=== PATIENT | male | born 1960 | race Caucasian/White ===

== ENCOUNTER 2016-08-09 12:12 | Inpatient (IN) | payer OTHER ==
[~2016-08-09] VITALS: Ht 182.8 cm; Wt 111.4 kg
--- NOTE | ~2016-08-09 | CON ---
[place], [place] REPORT OF CONSULTATION NAME: SARAH TRIANA UNIT #: [id number] ROOM: 407 DOCTOR: STACIE OLEA BIRTHDATE: [birth year] DOS: 08/10/2016 HISTORY OF PRESENT ILLNESS: He is a 56-year-old male who came into the hospital complaining of dizziness. [facility] to see his psych doctor and he was walking, had a dizzy episode, said that he sees stars. The episode lasted about 3 minutes and he was brought here to the hospital. He has had an extensive medical workup including an echocardiogram today. He lives in a senior care in [place]. PAST MEDICAL HISTORY: High magnesium, near syncopal episode, bipolar type 1, BPH. He is schizophrenic as well, constipation, GERD, high lipids, and paranoid disorder. MENTAL STATUS: He is alert and oriented x 3. His mood is good. His speech is appropriate. He has no signs of see or hypomania. He denies any hallucinations, delusions, or paranoia. His processing is just a little bit slowed. His memory does seem to be intact, though. He has had none of his psych medications since he has been here. He did get a one-time dose of Seroquel 50 mg last night at his request. He was previously on Haldol t.i.d. as needed, lithium 300 in the morning and 600 in the evening, and Seroquel 800 at bedtime. DIAGNOSIS: Chronic paranoid schizophrenia. PLAN: To restart his lithium 300 in the morning and 600 at bedtime since it has only been a couple days since he did not have it and then to continue the Seroquel at 800 mg every night at bedtime. He is for discharge today and states that he is going to follow up with his psych doctor, , at the [facility] today. Stacie Olea NP CM:CONSTR:REPORT OF CONSULTATION 1024 08/11/16 0126 interface
[~2016-08-09 12:12] MED LIST: ATIVAN0.5 MG PO; BENZTROPINE1 MG PO; DOCUSATE100 MG PO; GEMCOR600 MG PO; HALDOL5 M1 PO; LITHIUM CARBON600 MG PO; PRILOSEC20 M1 PO; QUETIAPINE FUM200 M1 PO; SEROQUEL XR50 MG PO; SEROQUEL50 MG PO; SPIRIVA18 MCG INH; TAMSULOSIN HYD0.4 MG PO; TYLENOL EXTRA500 M1 PO; ZOVIRAX400 MG PO
[2016-08-09 12:18] VITALS: BP 101/74
[2016-08-09] MEDS ORDERED: LOXAPINE SUCCIN10 MG PO (12:29)
[2016-08-09] MEDS ORDERED: OMEPRAZOLE20 M2 PO (12:30)
[2016-08-09] MEDS ORDERED: PROPRANOLOL HCL40 M1 PO (12:31)
[2016-08-09] MEDS ORDERED: HEALTHYLAX17 GM/Dose PO (12:32)
[2016-08-09] MEDS ORDERED: PROVENTIL0.09 MG/A1 INH (12:33)
[2016-08-09] MEDS ORDERED: FISH OIL500 M2 PO (12:35)
[2016-08-09] MEDS ORDERED: DOCUSATE SODIU100 M2 PO (12:36)
[2016-08-09] MEDS ORDERED: LITHIUM CARBON300 MG PO (12:37)
[2016-08-09] MEDS ORDERED: BASLE1 CRE TP (12:38)
[2016-08-09 12:44] LABS: BASO # 0.1 10*3/uL (0.0-0.1); BASO % 0.7 % (0.0-1.0); EOS # 0.4 10*3/uL (0.0-0.4); EOS % 5.2 % (1.0-4.0); HEMATOCRIT 43.1 % (42.0-52.0); HEMOGLOBIN 14.4 g/dl (14.0-18.0); LYMPH # 1.9 10*3/uL (1.3-4.4); LYMPH % 28.4 % (27.0-41.0); MEAN CELL VOLUME 95.1 fl (80.0-94.0); MEAN CORPUSCULAR HGB 31.8 pg (27.0-31.0); MEAN CORPUSCULAR HGB CONC 33.4 g/dl (33.0-37.0); MEAN PLATELET VOLUME 9.9 fl (9.6-12.3); MONO # 0.7 10*3/uL (0.1-1.0); MONO % 9.9 % (3.0-9.0); NEUT # 3.8 10*3/uL (2.3-7.9); NEUT % 55.5 % (47.0-73.0); PLATELET COUNT AUTOMATED 190 10*3/uL (130-400); RED BLOOD COUNT 4.53 10*6/uL (4.50-5.90); RED CELL DISTRI WIDTH 13.1 % (0-14.5); WHITE BLOOD COUNT 6.8 10*3/uL (4.8-10.8)
[2016-08-09 12:56] LABS: INTERNATIONAL NORM RATIO 1.1 (2.0-3.5); PROTHROMBIN TIME 11.4 SECONDS (9.0-12.4)
[2016-08-09 13:01] LABS: ALBUMIN 4.2 gm/dl (3.1-4.5); ALKALINE PHOSPHATASE 71 U/L (45-117); BILIRUBIN, TOTAL 0.5 mg/dl (0.2-1.0); BUN 21 mg/dl (7-24); CARBON DIOXIDE 32 mmol/L (21-32); CHLORIDE 103 mmol/L (98-107); EST GLOM FILT AFRICAN AMERICAN > 60 ml/min; GLUCOSE 103 mg/dL (65-99); MAGNESIUM 2.4 mg/dL (1.5-2.1); POTASSIUM 4.3 mmol/L (3.5-5.1); SGOT/AST 12 IU/L (3-35); SGPT/ALT 20 U/L (12-78); SODIUM 136 mmol/L (136-145); TOTAL PROTEIN 7.8 gm/dL (6.4-8.2)
[2016-08-09 13:08] LABS: TROPONIN I < 0.015 ng/ml (<0.045)
[2016-08-09 13:55] VITALS: BP 105/63
[2016-08-09] MEDS ORDERED: QUETIAPINE FUM400 M1 PO (14:18)
[2016-08-09] MEDS ORDERED: HALDOL5 MG PO (14:20)
[2016-08-09] MEDS ORDERED: VITAMIN D32000 IU PO (14:21)
[2016-08-09 14:34] VITALS: BP 119/89
[2016-08-09 16:00] VITALS: BP 120/84
[2016-08-09 20:00] VITALS: BP 144/57
[2016-08-10] VITALS: BP 119/79
[2016-08-10 05:05] VITALS: BP 143/86
[2016-08-10 06:39] LABS: BASO % 0.7 % (0.0-1.0); EOS # 0.3 10*3/uL (0.0-0.4); HEMATOCRIT 43.1 % (42.0-52.0); LYMPH # 1.8 10*3/uL (1.3-4.4); LYMPH % 29.6 % (27.0-41.0); MEAN CELL VOLUME 96.6 fl (80.0-94.0); MEAN CORPUSCULAR HGB 31.4 pg (27.0-31.0); MEAN CORPUSCULAR HGB CONC 32.5 g/dl (33.0-37.0); MEAN PLATELET VOLUME 10.1 fl (9.6-12.3); MONO # 0.5 10*3/uL (0.1-1.0); MONO % 8.4 % (3.0-9.0); NEUT # 3.4 10*3/uL (2.3-7.9); PLATELET COUNT AUTOMATED 175 10*3/uL (130-400); RED BLOOD COUNT 4.46 10*6/uL (4.50-5.90); RED CELL DISTRI WIDTH 13.2 % (0-14.5)
[2016-08-10 07:09] LABS: ALBUMIN 3.8 gm/dl (3.1-4.5); ALKALINE PHOSPHATASE 74 U/L (45-117); BILIRUBIN, TOTAL 0.5 mg/dl (0.2-1.0); BUN 18 mg/dl (7-24); CARBON DIOXIDE 28 mmol/L (21-32); CHLORIDE 105 mmol/L (98-107); CHOLESTEROL 162 mg/dL (<200); EST GLOM FILT AFRICAN AMERICAN > 60 ml/min; GLUCOSE 162 mg/dL (65-99); HDL CHOLESTEROL 34 mg/dl (40-60); LDL CHOLESTEROL 98 mg/dL (9-159); MAGNESIUM 2.1 mg/dL (1.5-2.1); PHOSPHOROUS 3.9 mg/dL (2.5-4.9); POTASSIUM 4.3 mmol/L (3.5-5.1); SGOT/AST 11 IU/L (3-35); SGPT/ALT 20 U/L (12-78); SODIUM 139 mmol/L (136-145); TOTAL PROTEIN 7.4 gm/dL (6.4-8.2); TRIGLYCERIDES 152 mg/dl (<150); VLDL CHOLESTEROL 30 mg/dL (6-40)
[2016-08-10 08:00] VITALS: BP 104/76
[2016-08-10 08:35] LABS: HEMOGLOBIN A1c 7.5 % (4.8-5.6)
[2016-08-10 09:57] LABS: VITAMIN D, 25-HYDROXY 28.4 ng/mL (30-100)
[2016-08-10 09:58] LABS: FOLIC ACID 19.42 ng/mL (>5.38)
[2016-08-10 12:30] VITALS: BP 118/70
== END 2016-08-10 13:47 | disposition home or self-care (01) | DRG 312 ==
LOC: ED 12:12 → EDHOLD 13:14 → 4E 13:14
PROVIDERS: Hospitalist; Student in an Organized Health Care Education/Training Program
DX: I95.2 Hypotension due to drugs (principal); E83.41 Hypermagnesemia; F20.0 Paranoid schizophrenia; F31.9 Bipolar disorder, unspecified; M79.89 Other specified soft tissue disorders; N40.0 Benign prostatic hyperplasia without lower urinary tract symptoms; T44.6X5A Adverse effect of alpha-adrenoreceptor antagonists, initial encounter; E78.2 Mixed hyperlipidemia; K59.00 Constipation, unspecified; K21.9 Gastro-esophageal reflux disease without esophagitis; I65.23 Occlusion and stenosis of bilateral carotid arteries; Z80.9 Family history of malignant neoplasm, unspecified; Z88.6 Allergy status to analgesic agent; Z88.8 Allergy status to other drugs, medicaments and biological substances; Z79.51 Long term (current) use of inhaled steroids; Z79.899 Other long term (current) drug therapy; Y92.89 Other specified places as the place of occurrence of the external cause

== ENCOUNTER 2016-08-30 11:22 | Inpatient (IN) | payer OTHER ==
[~2016-08-30] VITALS: Ht 182.8 cm; Wt 115.0 kg
[~2016-08-30 11:22] MED LIST changes: +BASLE1 CRE TP; +DOCUSATE SODIU100 M2 PO; +FISH OIL500 M2 PO; +HALDOL5 MG PO; +HEALTHYLAX17 GM/Dose PO; +LITHIUM CARBON300 MG PO; +LOXAPINE SUCCIN10 MG PO; +OMEPRAZOLE20 M2 PO; +PROPRANOLOL HCL40 M1 PO; +PROVENTIL0.09 MG/A1 INH; +QUETIAPINE FUM400 M1 PO; +VITAMIN D32000 IU PO
[2016-08-30 11:47] VITALS: BP 131/97
[2016-08-30 12:01] LABS: BASO % 0.5 % (0.0-1.0); EOS # 0.3 10*3/uL (0.0-0.4); EOS % 4.8 % (1.0-4.0); HEMATOCRIT 40.9 % (42.0-52.0); HEMOGLOBIN 13.4 g/dl (14.0-18.0); LYMPH # 1.3 10*3/uL (1.3-4.4); LYMPH % 21.2 % (27.0-41.0); MEAN CELL VOLUME 96.7 fl (80.0-94.0); MEAN CORPUSCULAR HGB 31.7 pg (27.0-31.0); MEAN CORPUSCULAR HGB CONC 32.8 g/dl (33.0-37.0); MEAN PLATELET VOLUME 9.8 fl (9.6-12.3); MONO # 0.6 10*3/uL (0.1-1.0); MONO % 9.5 % (3.0-9.0); NEUT % 63.5 % (47.0-73.0); PLATELET COUNT AUTOMATED 197 10*3/uL (130-400); RED BLOOD COUNT 4.23 10*6/uL (4.50-5.90); RED CELL DISTRI WIDTH 13.4 % (0-14.5); WHITE BLOOD COUNT 6.2 10*3/uL (4.8-10.8)
[2016-08-30 12:20] LABS: BUN 16 mg/dl (7-24); CARBON DIOXIDE 30 mmol/L (21-32); CHLORIDE 105 mmol/L (98-107); EST GLOM FILT AFRICAN AMERICAN > 60 ml/min; GLUCOSE 129 mg/dL (65-99); POTASSIUM 5.2 mmol/L (3.5-5.1); SODIUM 141 mmol/L (136-145); TROPONIN I 0.023 ng/ml (<0.045)
[2016-08-30 12:41] VITALS: BP 102/68
[2016-08-30 16:00] VITALS: BP 152/79
[2016-08-30] MEDS ORDERED: VOLTAREN11 T (16:12)
[2016-08-30 20:00] VITALS: BP 160/96
[2016-08-30] MEDS ORDERED: MAALOX ADVANCE148 ML PO (23:30)
[2016-08-30] MEDS ORDERED: TYLENOL325 M2 PO (23:31)
[2016-08-31] VITALS: BP 135/62
[2016-08-31 05:59] LABS: HEMATOCRIT 41.4 % (42.0-52.0); HEMOGLOBIN 13.9 g/dl (14.0-18.0); MEAN CELL VOLUME 95.8 fl (80.0-94.0); MEAN CORPUSCULAR HGB 32.2 pg (27.0-31.0); MEAN CORPUSCULAR HGB CONC 33.6 g/dl (33.0-37.0); MEAN PLATELET VOLUME 10.4 fl (9.6-12.3); PLATELET COUNT AUTOMATED 206 10*3/uL (130-400); RED BLOOD COUNT 4.32 10*6/uL (4.50-5.90); RED CELL DISTRI WIDTH 13.1 % (0-14.5); WHITE BLOOD COUNT 14.6 10*3/uL (4.8-10.8)
[2016-08-31 06:11] LABS: ALBUMIN 3.8 gm/dl (3.1-4.5); ALKALINE PHOSPHATASE 75 U/L (45-117); BILIRUBIN, TOTAL 0.3 mg/dl (0.2-1.0); BUN 19 mg/dl (7-24); CARBON DIOXIDE 27 mmol/L (21-32); CHLORIDE 102 mmol/L (98-107); EST GLOM FILT AFRICAN AMERICAN > 60 ml/min; GLUCOSE 201 mg/dL (65-99); MAGNESIUM 2.1 mg/dL (1.5-2.1); PHOSPHOROUS 4.8 mg/dL (2.5-4.9); POTASSIUM 4.9 mmol/L (3.5-5.1); SGOT/AST 10 IU/L (3-35); SGPT/ALT 24 U/L (12-78); SODIUM 138 mmol/L (136-145); TOTAL PROTEIN 7.5 gm/dL (6.4-8.2)
[2016-08-31 07:26] LABS: LYMPHOCYTE # 0.7 10*3/uL (1.3-4.4); MONOCYTE # 0.3 10*3/uL (0.1-1.0); NEUTROPHIL # 13.6 10*3/uL (2.3-7.9); NEUTROPHILS 93 % (47-73); PLATELET SUFFICIENCY NORMAL (NORMAL); TOTAL CELLS COUNTED 100 #CELLS
[2016-08-31 08:00] VITALS: BP 106/77
[2016-08-31 12:00] VITALS: BP 125/77
[2016-08-31 16:00] VITALS: BP 114/70
[2016-08-31 17:05] LABS: INTERNATIONAL NORM RATIO 1.1 (2.0-3.5); PROTHROMBIN TIME 12.2 SECONDS (9.0-12.4)
[2016-08-31 20:00] VITALS: BP 118/67
[2016-09-01] VITALS: BP 119/88
[2016-09-01 06:38] LABS: BASO % 0.1 % (0.0-1.0); HEMATOCRIT 42.5 % (42.0-52.0); HEMOGLOBIN 14.3 g/dl (14.0-18.0); IG # 0.3 10*3/uL (0.0-0.1); LYMPH # 1.3 10*3/uL (1.3-4.4); LYMPH % 6.8 % (27.0-41.0); MEAN CELL VOLUME 96.2 fl (80.0-94.0); MEAN CORPUSCULAR HGB 32.4 pg (27.0-31.0); MEAN CORPUSCULAR HGB CONC 33.6 g/dl (33.0-37.0); MEAN PLATELET VOLUME 10.6 fl (9.6-12.3); MONO # 0.9 10*3/uL (0.1-1.0); MONO % 4.8 % (3.0-9.0); NEUT # 15.9 10*3/uL (2.3-7.9); NEUT % 86.9 % (47.0-73.0); PLATELET COUNT AUTOMATED 206 10*3/uL (130-400); RED BLOOD COUNT 4.42 10*6/uL (4.50-5.90); RED CELL DISTRI WIDTH 13.3 % (0-14.5); WHITE BLOOD COUNT 18.3 10*3/uL (4.8-10.8)
[2016-09-01 07:07] LABS: ALBUMIN 3.7 gm/dl (3.1-4.5); ALKALINE PHOSPHATASE 73 U/L (45-117); BILIRUBIN, TOTAL 0.4 mg/dl (0.2-1.0); BUN 26 mg/dl (7-24); CARBON DIOXIDE 29 mmol/L (21-32); CHLORIDE 101 mmol/L (98-107); EST GLOM FILT AFRICAN AMERICAN > 60 ml/min; GLUCOSE 232 mg/dL (65-99); INTERNATIONAL NORM RATIO 1.2 (2.0-3.5); MAGNESIUM 2.3 mg/dL (1.5-2.1); POTASSIUM 4.5 mmol/L (3.5-5.1); PROTHROMBIN TIME 13.2 SECONDS (9.0-12.4); SGOT/AST 12 IU/L (3-35); SGPT/ALT 22 U/L (12-78); SODIUM 137 mmol/L (136-145); TOTAL PROTEIN 7.3 gm/dL (6.4-8.2)
[2016-09-01 08:00] VITALS: BP 118/66
[2016-09-01 12:00] VITALS: BP 125/82
[2016-09-01 16:00] VITALS: BP 115/70
[2016-09-01 20:00] VITALS: BP 147/85
[2016-09-02] VITALS: BP 111/25; BP 111/85
[2016-09-02 06:11] LABS: BASO % 0.1 % (0.0-1.0); HEMATOCRIT 42.9 % (42.0-52.0); HEMOGLOBIN 14.2 g/dl (14.0-18.0); IG # 0.1 10*3/uL (0.0-0.1); LYMPH # 1.2 10*3/uL (1.3-4.4); LYMPH % 8.3 % (27.0-41.0); MEAN CELL VOLUME 97.1 fl (80.0-94.0); MEAN CORPUSCULAR HGB 32.1 pg (27.0-31.0); MEAN CORPUSCULAR HGB CONC 33.1 g/dl (33.0-37.0); MEAN PLATELET VOLUME 10.2 fl (9.6-12.3); MONO # 0.8 10*3/uL (0.1-1.0); MONO % 5.3 % (3.0-9.0); NEUT # 12.4 10*3/uL (2.3-7.9); NEUT % 85.6 % (47.0-73.0); PLATELET COUNT AUTOMATED 183 10*3/uL (130-400); RED BLOOD COUNT 4.42 10*6/uL (4.50-5.90); RED CELL DISTRI WIDTH 13.3 % (0-14.5); WHITE BLOOD COUNT 14.5 10*3/uL (4.8-10.8)
[2016-09-02 06:44] LABS: ALBUMIN 3.6 gm/dl (3.1-4.5); ALKALINE PHOSPHATASE 70 U/L (45-117); BILIRUBIN, TOTAL 0.4 mg/dl (0.2-1.0); BUN 28 mg/dl (7-24); CARBON DIOXIDE 26 mmol/L (21-32); CHLORIDE 102 mmol/L (98-107); EST GLOM FILT AFRICAN AMERICAN > 60 ml/min; GLUCOSE 246 mg/dL (65-99); MAGNESIUM 2.4 mg/dL (1.5-2.1); POTASSIUM 4.6 mmol/L (3.5-5.1); SGOT/AST 21 IU/L (3-35); SGPT/ALT 37 U/L (12-78); SODIUM 136 mmol/L (136-145); TOTAL PROTEIN 7.1 gm/dL (6.4-8.2)
[2016-09-02 08:00] VITALS: BP 123/76
[2016-09-02 12:00] VITALS: BP 126/81
[2016-09-02 16:00] VITALS: BP 115/67
[2016-09-02 20:00] VITALS: BP 132/84
[2016-09-03] VITALS: BP 127/79
[2016-09-03 06:07] LABS: BASO % 0.1 % (0.0-1.0); EOS # 0.1 10*3/uL (0.0-0.4); EOS % 0.9 % (1.0-4.0); HEMATOCRIT 45.1 % (42.0-52.0); HEMOGLOBIN 14.2 g/dl (14.0-18.0); IG # 0.1 10*3/uL (0.0-0.1); LYMPH # 2.7 10*3/uL (1.3-4.4); LYMPH % 20.8 % (27.0-41.0); MEAN CELL VOLUME 98.5 fl (80.0-94.0); MEAN CORPUSCULAR HGB CONC 31.5 g/dl (33.0-37.0); MEAN PLATELET VOLUME 10.5 fl (9.6-12.3); MONO % 7.8 % (3.0-9.0); NEUT # 8.9 10*3/uL (2.3-7.9); NEUT % 69.7 % (47.0-73.0); PLATELET COUNT AUTOMATED 189 10*3/uL (130-400); RED BLOOD COUNT 4.58 10*6/uL (4.50-5.90); RED CELL DISTRI WIDTH 13.4 % (0-14.5); WHITE BLOOD COUNT 12.7 10*3/uL (4.8-10.8)
[2016-09-03 06:29] LABS: ALBUMIN 3.5 gm/dl (3.1-4.5); BUN 26 mg/dl (7-24); CARBON DIOXIDE 27 mmol/L (21-32); CHLORIDE 102 mmol/L (98-107); GLUCOSE 145 mg/dL (65-99); MAGNESIUM 2.2 mg/dL (1.5-2.1); POTASSIUM 4.1 mmol/L (3.5-5.1); SODIUM 138 mmol/L (136-145)
[2016-09-03 06:32] LABS: ALKALINE PHOSPHATASE 67 U/L (45-117); BILIRUBIN, TOTAL 0.3 mg/dl (0.2-1.0); EST GLOM FILT AFRICAN AMERICAN > 60 ml/min; SGOT/AST 19 IU/L (3-35); SGPT/ALT 38 U/L (12-78)
[2016-09-03 08:00] VITALS: BP 115/80
[2016-09-03 12:00] VITALS: BP 114/79
[2016-09-03 16:00] VITALS: BP 116/75
[2016-09-03 20:00] VITALS: BP 144/87
[2016-09-04] VITALS: BP 134/83
[2016-09-04 04:00] VITALS: BP 132/81
[2016-09-04 05:56] LABS: BASO % 0.2 % (0.0-1.0); EOS # 0.2 10*3/uL (0.0-0.4); EOS % 2.3 % (1.0-4.0); HEMATOCRIT 44.2 % (42.0-52.0); HEMOGLOBIN 14.4 g/dl (14.0-18.0); IG # 0.1 10*3/uL (0.0-0.1); LYMPH # 2.7 10*3/uL (1.3-4.4); LYMPH % 30.9 % (27.0-41.0); MEAN CELL VOLUME 97.4 fl (80.0-94.0); MEAN CORPUSCULAR HGB 31.7 pg (27.0-31.0); MEAN CORPUSCULAR HGB CONC 32.6 g/dl (33.0-37.0); MEAN PLATELET VOLUME 10.2 fl (9.6-12.3); MONO # 0.8 10*3/uL (0.1-1.0); MONO % 9.2 % (3.0-9.0); NEUT # 4.9 10*3/uL (2.3-7.9); NEUT % 56.4 % (47.0-73.0); PLATELET COUNT AUTOMATED 172 10*3/uL (130-400); RED BLOOD COUNT 4.54 10*6/uL (4.50-5.90); RED CELL DISTRI WIDTH 13.5 % (0-14.5); WHITE BLOOD COUNT 8.7 10*3/uL (4.8-10.8)
[2016-09-04 06:04] LABS: ALBUMIN 3.4 gm/dl (3.1-4.5); ALKALINE PHOSPHATASE 64 U/L (45-117); BILIRUBIN, TOTAL 0.4 mg/dl (0.2-1.0); BUN 24 mg/dl (7-24); CARBON DIOXIDE 28 mmol/L (21-32); CHLORIDE 102 mmol/L (98-107); EST GLOM FILT AFRICAN AMERICAN > 60 ml/min; GLUCOSE 154 mg/dL (65-99); MAGNESIUM 2.2 mg/dL (1.5-2.1); POTASSIUM 4.6 mmol/L (3.5-5.1); SGOT/AST 12 IU/L (3-35); SGPT/ALT 37 U/L (12-78); SODIUM 140 mmol/L (136-145); TOTAL PROTEIN 6.8 gm/dL (6.4-8.2)
[2016-09-04 08:00] VITALS: BP 123/79
[2016-09-04] MEDS ORDERED: XARE20MG PO (12:43)
[2016-09-04] MEDS ORDERED: XARE15TA PO (12:43)
== END 2016-09-04 13:36 | disposition home or self-care (01) | DRG 291 ==
LOC: ED 11:22 → 5E 13:20 → EDHOLD 13:20 → 5E 13:33
PROVIDERS: Emergency Medicine; Hospitalist
DX: I11.0 Hypertensive heart disease with heart failure (principal); I26.99 Other pulmonary embolism without acute cor pulmonale; I82.412 Acute embolism and thrombosis of left femoral vein; J18.9 Pneumonia, unspecified organism; I82.432 Acute embolism and thrombosis of left popliteal vein; I82.442 Acute embolism and thrombosis of left tibial vein; J44.1 Chronic obstructive pulmonary disease with (acute) exacerbation; J44.0 Chronic obstructive pulmonary disease with (acute) lower respiratory infection; F20.0 Paranoid schizophrenia; D64.9 Anemia, unspecified; E87.5 Hyperkalemia; I50.33 Acute on chronic diastolic (congestive) heart failure; K59.00 Constipation, unspecified; F31.9 Bipolar disorder, unspecified; K21.9 Gastro-esophageal reflux disease without esophagitis; N40.0 Benign prostatic hyperplasia without lower urinary tract symptoms; E78.2 Mixed hyperlipidemia; A60.00 Herpesviral infection of urogenital system, unspecified; Z72.0 Tobacco use; Z71.6 Tobacco abuse counseling; Z80.9 Family history of malignant neoplasm, unspecified; Z88.6 Allergy status to analgesic agent; Z88.8 Allergy status to other drugs, medicaments and biological substances; Z79.899 Other long term (current) drug therapy; Z91.09 Other allergy status, other than to drugs and biological substances; Z90.89 Acquired absence of other organs

== ENCOUNTER 2016-10-26 14:22 | Inpatient (IN) | payer OTHER ==
[~2016-10-26] VITALS: Ht 182.8 cm; Wt 111.3 kg
--- NOTE | ~2016-10-26 | CON ---
[place], [place] REPORT OF CONSULTATION NAME: SARAH TRIANA UNIT #: [id number] ROOM: 532 DOCTOR: Lis VIRGEN,ROLAN BIRTHDATE: [birth year] DOS: 10/28/2016 PSYCHIATRIC CONSULT REPORT REASON FOR CONSULT: Auditory hallucination and psychotic symptoms. HISTORY OF PRESENT ILLNESS: The patient was seen, chart reviewed. I spoke with the staff. Per staff, the patient was experiencing auditory hallucinations yesterday and Psychiatry was consulted because of that. The patient got admitted via the ER because of complaints of shortness of breath. The patient has a history of COPD, DVT and PE and was on oxygen. The patient got admitted to the medical floor for further care and stabilization. The patient was pleasant, cooperative during the interview. He acknowledges the experience of auditory hallucination. He said that he did not sleep for a day and a half because he did not get his medication. He said that the reason that he was hearing because of his lack of sleep. He denied any auditory hallucinations now, denied any other psychotic symptoms. He denied depressed mood, hopelessness and helplessness. Denied any other neurovegetative signs and symptoms of depression. He denied any psychotic or manic symptoms also. He said that he was compliant with his medication and the medications were helping him. PAST MEDICAL HISTORY: Significant for BPH, chronic congestive heart failure, constipation, COPD, essential hypertension, genital herpes, GERD, history of DVT and PE. PAST PSYCHIATRIC HISTORY: The patient reported multiple prior psychiatric hospitalizations and multiple prior suicide attempts. No suicide in the family. Denied having any gun at home. SUBSTANCE ABUSE HISTORY: The patient mentions that he has been sober for 8 years. 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 SOCIAL HISTORY: He was born and raised in [place], [place]. Never , no kids. He was a . 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 He lives in a senior living. MENTAL STATUS EXAMINATION: The patient was pleasant and cooperative. Described his mood as "okay." Affect was sleepy. Thought process goal directed. No flight of ideas or loosening of association. He denied auditory or visual hallucination. No delusions or paranoia noted. He denied any suicidal ideation, intent or plan. He also denied any homicidal ideation, intent or plan. Insight and judgment fair. ASSESSMENT: Schizophrenia versus schizoaffective disorder. PLAN: 1. Continue current medication of lithium 600 mg at night and 300 mg in the morning, Seroquel 800 mg at night. 2. Need to get lithium levels, CBC, diff and a CMP. [place], [place] REPORT OF CONSULTATION NAME: SARAH TRIANA UNIT #: [id number] ROOM: [facility] DOCTOR: Lis VIRGEN,ROLAN BIRTHDATE: [birth year] 3. Supportive care. 4. The patient needs psychiatric followup on discharge. 5. Prior to the discharge just to make sure that the patient does not have any acute psychotic symptoms. If so, please consult Psychiatry. 6. We will sign off on this patient. ROLAN VIRGEN MD CM:CONSTR:REPORT OF CONSULTATION 0951 10/28/16 1028 interface
[~2016-10-26 14:22] MED LIST changes: +HEALTHYLAX17 GM PO; -HEALTHYLAX17 GM/Dose PO; +MAALOX ADVANCE148 ML PO; +TYLENOL325 M2 PO; +VOLTAREN11 T; +XARE15TA PO; +XARE20MG PO
[2016-10-26 14:28] VITALS: BP 123/81
[2016-10-26 14:47] LABS: BASO # 0.1 10*3/uL (0.0-0.1); BASO % 0.8 % (0.0-1.0); EOS # 0.3 10*3/uL (0.0-0.4); EOS % 4.6 % (1.0-4.0); HEMATOCRIT 41.7 % (42.0-52.0); HEMOGLOBIN 13.8 g/dl (14.0-18.0); LYMPH # 1.6 10*3/uL (1.3-4.4); MEAN CELL VOLUME 95.2 fl (80.0-94.0); MEAN CORPUSCULAR HGB 31.5 pg (27.0-31.0); MEAN CORPUSCULAR HGB CONC 33.1 g/dl (33.0-37.0); MEAN PLATELET VOLUME 10.5 fl (9.6-12.3); MONO # 0.5 10*3/uL (0.1-1.0); MONO % 8.6 % (3.0-9.0); NEUT # 3.7 10*3/uL (2.3-7.9); NEUT % 59.7 % (47.0-73.0); PLATELET COUNT AUTOMATED 194 10*3/uL (130-400); RED BLOOD COUNT 4.38 10*6/uL (4.50-5.90); RED CELL DISTRI WIDTH 12.9 % (0-14.5); WHITE BLOOD COUNT 6.2 10*3/uL (4.8-10.8)
[2016-10-26 15:04] LABS: BUN 17 mg/dl (7-24); CHLORIDE 106 mmol/L (98-107); CREATININE 1.12 mg/dL (0.70-1.30); POTASSIUM 4.4 mmol/L (3.5-5.1); SODIUM 137 mmol/L (136-145); TROPONIN I 0.045 ng/ml (<0.045)
[2016-10-26 15:48] VITALS: BP 132/84
[2016-10-26 17:27] VITALS: BP 126/86
[2016-10-26 18:21] VITALS: BP 123/81
[2016-10-26 20:00] VITALS: BP 136/90
[2016-10-26] MEDS ORDERED: IPRATROPIU0.2 MG/1 M NEB (21:25)
[2016-10-26] MEDS ORDERED: ALBUTEROL2.5 MG/0.5 NEB (21:29)
[2016-10-26] MEDS ORDERED: MAPAP EXTRA ST500 MG PO (21:31)
[2016-10-26] MEDS ORDERED: XARE20MG PO (21:41)
[2016-10-26] MEDS ORDERED: HALDOL5 MG PO (21:42)
[2016-10-26] MEDS ORDERED: HALDOL DEC100 MG/1 M IM (21:45)
[2016-10-27] VITALS: BP 136/90
[2016-10-27 06:13] LABS: BASO % 0.2 % (0.0-1.0); HEMOGLOBIN 13.8 g/dl (14.0-18.0); LYMPH # 0.7 10*3/uL (1.3-4.4); LYMPH % 7.2 % (27.0-41.0); MEAN CELL VOLUME 97.3 fl (80.0-94.0); MEAN CORPUSCULAR HGB 31.2 pg (27.0-31.0); MEAN CORPUSCULAR HGB CONC 32.1 g/dl (33.0-37.0); MONO # 0.3 10*3/uL (0.1-1.0); MONO % 2.9 % (3.0-9.0); NEUT # 8.2 10*3/uL (2.3-7.9); NEUT % 89.4 % (47.0-73.0); PLATELET COUNT AUTOMATED 207 10*3/uL (130-400); RED BLOOD COUNT 4.42 10*6/uL (4.50-5.90); RED CELL DISTRI WIDTH 12.7 % (0-14.5); WHITE BLOOD COUNT 9.2 10*3/uL (4.8-10.8)
[2016-10-27 06:16] LABS: ALBUMIN 3.9 gm/dl (3.1-4.5); ALKALINE PHOSPHATASE 72 U/L (45-117); BUN 17 mg/dl (7-24); CHLORIDE 106 mmol/L (98-107); MAGNESIUM 2.1 mg/dL (1.5-2.1); PHOSPHOROUS 3.1 mg/dL (2.5-4.9); POTASSIUM 4.8 mmol/L (3.5-5.1); SGOT/AST 12 IU/L (3-35); SGPT/ALT 22 U/L (12-78); SODIUM 136 mmol/L (136-145); TOTAL PROTEIN 7.5 gm/dL (6.4-8.2)
[2016-10-27 06:23] LABS: THYROID STIM HORMONE (HS) 0.659 uIU/ml (0.358-4.75)
[2016-10-27 06:28] LABS: ACT PARTIAL THROMBO TIME 30.8 SECONDS (20.8-31.5); INTERNATIONAL NORM RATIO 1.4 (2.0-3.5)
[2016-10-27 07:22] LABS: VITAMIN D, 25-HYDROXY 34.2 ng/mL (30-100)
[2016-10-27 08:00] VITALS: BP 136/74
[2016-10-27 11:57] VITALS: BP 121/67
[2016-10-27 16:00] VITALS: BP 119/74
[2016-10-27 20:00] VITALS: BP 120/67
[2016-10-28] VITALS: BP 118/72
[2016-10-28 05:55] LABS: BASO % 0.1 % (0.0-1.0); EOS % 0.2 % (1.0-4.0); HEMATOCRIT 40.7 % (42.0-52.0); LYMPH # 1.4 10*3/uL (1.3-4.4); MEAN CELL VOLUME 99.3 fl (80.0-94.0); MEAN CORPUSCULAR HGB 31.7 pg (27.0-31.0); MEAN CORPUSCULAR HGB CONC 31.9 g/dl (33.0-37.0); MEAN PLATELET VOLUME 10.8 fl (9.6-12.3); MONO # 0.6 10*3/uL (0.1-1.0); NEUT # 8.1 10*3/uL (2.3-7.9); NEUT % 79.4 % (47.0-73.0); PLATELET COUNT AUTOMATED 178 10*3/uL (130-400); WHITE BLOOD COUNT 10.2 10*3/uL (4.8-10.8)
[2016-10-28 06:16] LABS: BUN 17 mg/dl (7-24); CHLORIDE 108 mmol/L (98-107); CREATININE 1.02 mg/dL (0.70-1.30); POTASSIUM 4.2 mmol/L (3.5-5.1); SODIUM 141 mmol/L (136-145)
[2016-10-28 08:00] VITALS: BP 121/80
[2016-10-28 12:00] VITALS: BP 118/78; BP 118/8
[2016-10-28 16:00] VITALS: BP 122/74
[2016-10-28 20:00] VITALS: BP 112/72
[2016-10-29] VITALS: BP 117/68
[2016-10-29 06:48] LABS: BASO % 0.2 % (0.0-1.0); EOS % 0.4 % (1.0-4.0); HEMATOCRIT 39.6 % (42.0-52.0); HEMOGLOBIN 12.9 g/dl (14.0-18.0); LYMPH # 1.5 10*3/uL (1.3-4.4); MEAN CELL VOLUME 97.5 fl (80.0-94.0); MEAN CORPUSCULAR HGB 31.8 pg (27.0-31.0); MEAN CORPUSCULAR HGB CONC 32.6 g/dl (33.0-37.0); MEAN PLATELET VOLUME 10.5 fl (9.6-12.3); MONO # 0.7 10*3/uL (0.1-1.0); MONO % 7.1 % (3.0-9.0); NEUT # 7.6 10*3/uL (2.3-7.9); PLATELET COUNT AUTOMATED 161 10*3/uL (130-400); RED BLOOD COUNT 4.06 10*6/uL (4.50-5.90); RED CELL DISTRI WIDTH 12.8 % (0-14.5); WHITE BLOOD COUNT 9.9 10*3/uL (4.8-10.8)
[2016-10-29 07:42] LABS: ALBUMIN 3.5 gm/dl (3.1-4.5); ALKALINE PHOSPHATASE 62 U/L (45-117); BUN 18 mg/dl (7-24); CHLORIDE 106 mmol/L (98-107); MAGNESIUM 2.1 mg/dL (1.5-2.1); POTASSIUM 4.1 mmol/L (3.5-5.1); SGOT/AST 11 IU/L (3-35); SGPT/ALT 22 U/L (12-78); SODIUM 139 mmol/L (136-145); TOTAL PROTEIN 6.8 gm/dL (6.4-8.2)
[2016-10-29 08:00] VITALS: BP 118/79
[2016-10-29 12:00] VITALS: BP 110/66
[2016-10-29 16:00] VITALS: BP 138/67
[2016-10-29 20:00] VITALS: BP 142/83
[2016-10-30] VITALS: BP 110/72
[2016-10-30 04:00] VITALS: BP 112/72
[2016-10-30 06:01] LABS: BASO % 0.1 % (0.0-1.0); EOS % 0.3 % (1.0-4.0); HEMATOCRIT 40.7 % (42.0-52.0); HEMOGLOBIN 13.3 g/dl (14.0-18.0); LYMPH # 1.3 10*3/uL (1.3-4.4); LYMPH % 14.4 % (27.0-41.0); MEAN CELL VOLUME 96.4 fl (80.0-94.0); MEAN CORPUSCULAR HGB 31.5 pg (27.0-31.0); MEAN CORPUSCULAR HGB CONC 32.7 g/dl (33.0-37.0); MEAN PLATELET VOLUME 10.7 fl (9.6-12.3); MONO # 0.7 10*3/uL (0.1-1.0); MONO % 7.7 % (3.0-9.0); NEUT % 77.1 % (47.0-73.0); PLATELET COUNT AUTOMATED 165 10*3/uL (130-400); RED BLOOD COUNT 4.22 10*6/uL (4.50-5.90); RED CELL DISTRI WIDTH 12.9 % (0-14.5); WHITE BLOOD COUNT 9.1 10*3/uL (4.8-10.8)
[2016-10-30 06:13] LABS: ALBUMIN 3.6 gm/dl (3.1-4.5); ALKALINE PHOSPHATASE 61 U/L (45-117); BUN 20 mg/dl (7-24); CHLORIDE 105 mmol/L (98-107); CREATININE 0.85 mg/dL (0.70-1.30); MAGNESIUM 2.3 mg/dL (1.5-2.1); POTASSIUM 4.4 mmol/L (3.5-5.1); SGOT/AST 14 IU/L (3-35); SGPT/ALT 31 U/L (12-78); SODIUM 138 mmol/L (136-145); TOTAL PROTEIN 7.1 gm/dL (6.4-8.2)
[2016-10-30 08:00] VITALS: BP 115/75
[2016-10-30 12:00] VITALS: BP 124/79
[2016-10-30 16:00] VITALS: BP 117/82
[2016-10-30 20:00] VITALS: BP 113/75
[2016-10-31] VITALS: BP 120/75
[2016-10-31 04:00] VITALS: BP 125/75
[2016-10-31 06:34] LABS: BASO % 0.1 % (0.0-1.0); EOS % 0.2 % (1.0-4.0); HEMATOCRIT 41.6 % (42.0-52.0); HEMOGLOBIN 13.8 g/dl (14.0-18.0); LYMPH # 1.9 10*3/uL (1.3-4.4); LYMPH % 16.2 % (27.0-41.0); MEAN CELL VOLUME 95.6 fl (80.0-94.0); MEAN CORPUSCULAR HGB 31.7 pg (27.0-31.0); MEAN CORPUSCULAR HGB CONC 33.2 g/dl (33.0-37.0); MEAN PLATELET VOLUME 10.9 fl (9.6-12.3); MONO # 0.9 10*3/uL (0.1-1.0); MONO % 7.4 % (3.0-9.0); NEUT # 8.8 10*3/uL (2.3-7.9); NEUT % 75.5 % (47.0-73.0); PLATELET COUNT AUTOMATED 196 10*3/uL (130-400); RED BLOOD COUNT 4.35 10*6/uL (4.50-5.90); RED CELL DISTRI WIDTH 12.9 % (0-14.5); WHITE BLOOD COUNT 11.6 10*3/uL (4.8-10.8)
[2016-10-31 07:00] LABS: BUN 24 mg/dl (7-24); CHLORIDE 105 mmol/L (98-107); SODIUM 138 mmol/L (136-145)
[2016-10-31 08:00] VITALS: BP 116/78
[2016-10-31 12:00] VITALS: BP 113/77
[2016-10-31 16:00] VITALS: BP 102/60
[2016-10-31 20:00] VITALS: BP 115/75
[2016-11-01] VITALS (7 sets, daily range): BP systolic 114–139; BP diastolic 71–89
[2016-11-01 06:25] LABS: BASO % 0.1 % (0.0-1.0); EOS % 0.3 % (1.0-4.0); HEMATOCRIT 42.8 % (42.0-52.0); HEMOGLOBIN 14.4 g/dl (14.0-18.0); LYMPH # 1.7 10*3/uL (1.3-4.4); LYMPH % 15.9 % (27.0-41.0); MEAN CORPUSCULAR HGB 32.3 pg (27.0-31.0); MEAN CORPUSCULAR HGB CONC 33.6 g/dl (33.0-37.0); MEAN PLATELET VOLUME 10.8 fl (9.6-12.3); MONO # 0.8 10*3/uL (0.1-1.0); MONO % 7.4 % (3.0-9.0); NEUT # 8.2 10*3/uL (2.3-7.9); NEUT % 75.5 % (47.0-73.0); PLATELET COUNT AUTOMATED 201 10*3/uL (130-400); RED BLOOD COUNT 4.46 10*6/uL (4.50-5.90); RED CELL DISTRI WIDTH 12.7 % (0-14.5); WHITE BLOOD COUNT 10.9 10*3/uL (4.8-10.8)
[2016-11-01 06:26] LABS: BUN 27 mg/dl (7-24); CHLORIDE 103 mmol/L (98-107); CREATININE 0.99 mg/dL (0.70-1.30); POTASSIUM 4.1 mmol/L (3.5-5.1); SODIUM 135 mmol/L (136-145)
[2016-11-01] MEDS ORDERED: PREDNISONE10 MG PO (12:52)
[2016-11-02] VITALS: BP 103/71
[2016-11-02 04:00] VITALS: BP 103/71
[2016-11-02 08:00] VITALS: BP 104/80
[2016-11-02 12:00] VITALS: BP 110/70
== END 2016-11-02 14:20 | disposition home or self-care (01) | DRG 871 ==
LOC: ED 14:22 → EDHOLD 17:56 → 5E 17:56
PROVIDERS: Emergency Medicine; Family Medicine; Internal Medicine; ADMIT Internal Medicine
DX: A41.9 Sepsis, unspecified organism (principal); J96.01 Acute respiratory failure with hypoxia; I26.99 Other pulmonary embolism without acute cor pulmonale; I11.0 Hypertensive heart disease with heart failure; J18.9 Pneumonia, unspecified organism; I50.32 Chronic diastolic (congestive) heart failure; J44.0 Chronic obstructive pulmonary disease with (acute) lower respiratory infection; J44.1 Chronic obstructive pulmonary disease with (acute) exacerbation; F20.0 Paranoid schizophrenia; R65.20 Severe sepsis without septic shock; F31.9 Bipolar disorder, unspecified; N40.0 Benign prostatic hyperplasia without lower urinary tract symptoms; K21.9 Gastro-esophageal reflux disease without esophagitis; E78.2 Mixed hyperlipidemia; E66.01 Morbid (severe) obesity due to excess calories; D72.810 Lymphocytopenia; F17.210 Nicotine dependence, cigarettes, uncomplicated; A60.00 Herpesviral infection of urogenital system, unspecified; Z68.34 Body mass index [BMI] 34.0-34.9, adult; Z79.01 Long term (current) use of anticoagulants; Z79.899 Other long term (current) drug therapy; Z86.718 Personal history of other venous thrombosis and embolism; Z86.711 Personal history of pulmonary embolism; Z80.8 Family history of malignant neoplasm of other organs or systems; Z88.6 Allergy status to analgesic agent; Z88.8 Allergy status to other drugs, medicaments and biological substances

== ENCOUNTER 2016-11-14 13:15 | Emergency (ER) | payer OTHER, MEDICARE ==
[~2016-11-14] VITALS: Ht 182.8 cm; Wt 108.9 kg
[~2016-11-14 13:15] MED LIST changes: +ALBUTEROL2.5 MG/0.5 NEB; +HALDOL DEC100 MG/1 M IM; +IPRATROPIU0.2 MG/1 M NEB; +MAPAP EXTRA ST500 MG PO; +PREDNISONE10 MG PO
[2016-11-14 13:50] LABS: BASO % 0.5 % (0.0-1.0); EOS # 0.1 10*3/uL (0.0-0.4); EOS % 1.1 % (1.0-4.0); HEMATOCRIT 41.5 % (42.0-52.0); HEMOGLOBIN 13.8 g/dl (14.0-18.0); LYMPH # 1.3 10*3/uL (1.3-4.4); LYMPH % 14.6 % (27.0-41.0); MEAN CELL VOLUME 94.3 fl (80.0-94.0); MEAN CORPUSCULAR HGB 31.4 pg (27.0-31.0); MEAN CORPUSCULAR HGB CONC 33.3 g/dl (33.0-37.0); MEAN PLATELET VOLUME 10.2 fl (9.6-12.3); MONO # 0.5 10*3/uL (0.1-1.0); MONO % 5.1 % (3.0-9.0); NEUT # 6.9 10*3/uL (2.3-7.9); NEUT % 77.9 % (47.0-73.0); PLATELET COUNT AUTOMATED 170 10*3/uL (130-400); RED CELL DISTRI WIDTH 12.6 % (0-14.5); WHITE BLOOD COUNT 8.8 10*3/uL (4.8-10.8)
[2016-11-14 14:04] LABS: ACT PARTIAL THROMBO TIME 24.5 SECONDS (20.8-31.5); INTERNATIONAL NORM RATIO 1.2 (2.0-3.5)
[2016-11-14 14:06] LABS: ALBUMIN 3.9 gm/dl (3.1-4.5); ALKALINE PHOSPHATASE 58 U/L (45-117); BUN 19 mg/dl (7-24); CHLORIDE 103 mmol/L (98-107); POTASSIUM 4.7 mmol/L (3.5-5.1); SGOT/AST 20 IU/L (3-35); SGPT/ALT 38 U/L (12-78); SODIUM 137 mmol/L (136-145); TOTAL PROTEIN 7.4 gm/dL (6.4-8.2)
[2016-11-14 14:07] LABS: TROPONIN I 0.023 ng/ml (<0.045)
[2016-11-14 14:54] LABS: ABG BASE EXCESS -1.1 mmol/L (-2.0-2.0); ABG O2 SATURATION 91.5 % (95-97); ARTERIAL BLOOD GAS PCO2 43.7 mmHg (35-45); ARTERIAL BLOOD GAS PH 7.358 (7.35-7.45); ARTERIAL BLOOD GAS PO2 65.6 mmHg (80-90)
[2016-11-14 19:42] VITALS: BP 112/81
== END 2016-11-14 20:52 | disposition short-term general hospital (02) ==
LOC: ED 13:15
PROVIDERS: Emergency Medicine
DX: J96.01 Acute respiratory failure with hypoxia (principal); J44.9 Chronic obstructive pulmonary disease, unspecified; K21.9 Gastro-esophageal reflux disease without esophagitis; I11.0 Hypertensive heart disease with heart failure; I50.9 Heart failure, unspecified; Z88.8 Allergy status to other drugs, medicaments and biological substances; Z88.6 Allergy status to analgesic agent; Z79.899 Other long term (current) drug therapy

== ENCOUNTER 2018-03-21 11:18 | Inpatient (IN) | payer OTHER ==
[2018-03-21] VITALS (7 sets, daily range): BP systolic 94–120; BP diastolic 68–73
[~2018-03-21] VITALS: Ht 182.8 cm; Wt 99.9 kg
--- NOTE | ~2018-03-21 | EKG ---
[place], [place] ELECTROCARDIOGRAM REPORT NAME: SARAH TRIANA UNIT #: [id number] ROOM: 504 DOCTOR: ISIDRO DRAFT REPORT BIRTHDATE: [birth year] [facility] Test Date: 2018-03-24 Test Time: 20:35:39 Pat Name: SARAH TRIANA Department: Room: 504 Gender: M Retail Services Professional: Xiomy Doss : 1960 Requested By: MUSHTAQ CAMACHO Order Number: [id number] Reading MD: Elijah Santos MD Measurements Intervals [place] Rate: 150 P: 110 VA: 148 QRS: 117 QRSD: 121 T: -20 QT: 286 QTc: 452 Interpretive Statements SUPRAVENTRICULAR TACHYCARDIA, most likely AVNRT RBBB and LPFB Compared to ECG 03/23/2018 09:09:15 Left posterior fascicular block now present Right bundle-branch block now present Right-axis deviation no longer present Electronically Signed On 03-26-2018 9:05:56 PST by Elijah Santos MD CM:EKGRPT:ELECTROCARDIOGRAM REPORT 34 4 MUSHTAQ MCGOWAN DRAFT REPORT MUSHTAQ CAMACHO DO
--- NOTE | ~2018-03-21 | CON ---
[place], [place] REPORT OF CONSULTATION NAME: SARAH TRIANA UNIT #: [id number] ROOM: 504 DOCTOR: SALVADOR DEAN MD BIRTHDATE: [birth year] DOS: 03/28/2018 CHIEF COMPLAINT: "I'm feeling better now." HISTORY OF PRESENT ILLNESS: This is a 58-year-old white male admitted initially because of tremors in his entire body. Initially, it was thought that he had consumed too much lithium and was toxic; however, his lithium level upon admission was subtherapeutic. They then felt that this could be because he was using nicotine lozenges excessively. The patient reports he follows at the [facility] and has been prescribed Seroquel 400 mg at bedtime. He is content with how the Seroquel is working and denies current psychotic symptoms and states that sleep and appetite and other basic factors are within normal limits. He denies any side effects from the Seroquel. He also currently resides at [facility] in [place] and states that he likes it there. He voices no other complaints and does not feel that his medication regimen needs to be adjusted. MENTAL STATUS: He is alert and oriented. He is very slow and deliberate to respond and his responses tended to be very short and simplistic. He, however, denies delusions or paranoia. He denies auditory or visual hallucinations. I did not see the presence of any hypomania or see. I did not see any tardive dyskinesia or extrapyramidal symptoms. Memory is relatively intact. DIAGNOSIS: Schizoaffective disorder. PLAN: I will continue his current psychotropic regimen as he is content that this is effective without side effects. For completeness sake, I will order a serum ammonia level, a TSH, just to make certain that the lithium has not damaged his thyroid at all and also a screening vitamin D level. Should you require further intervention, please reconsult me at any time. SALVADOR DEAN MD CM:CONSTR:REPORT OF CONSULTATION 1002 03/29/18 0025 interface
--- NOTE | ~2018-03-21 | EKG ---
[place], [place] ELECTROCARDIOGRAM REPORT NAME: SARAH TRIANA UNIT #: [id number] ROOM: 511 DOCTOR: ISIDRO DRAFT REPORT BIRTHDATE: [birth year] [facility] Test Date: 2018-03-22 Test Time: 19:35:47 Pat Name: SARAH TRIANA Department: 5E Room: 511 1 Gender: M Eye Surgeon: John Mariano : 1960 Requested By: PASCALE SANCHEZ Order Number: [id number] Reading MD: Elijah Santos MD Measurements Intervals [place] Rate: 152 P: 0 IL: 216 QRS: 131 QRSD: 109 T: -10 QT: 292 QTc: 465 Interpretive Statements Supraventricular tachycardia Prolonged IL interval Right axis deviation Consider left atrial enlargement Probable right ventricular hypertrophy Baseline wander in lead(s) V1 Compared to ECG 03/21/2018 11:35:03 Sinus rhythm no longer present Electronically Signed On 03-24-2018 4:54:28 PST by Elijah Santos MD CM:EKGRPT:ELECTROCARDIOGRAM REPORT [id number] PASCALE MCGOWAN DRAFT REPORT PASCALE SANCHEZ DO
--- NOTE | ~2018-03-21 | EKG ---
[place], [place] ELECTROCARDIOGRAM REPORT NAME: SARAH TRIANA UNIT #: [id number] ROOM: 511 DOCTOR: ISIDRO DRAFT REPORT BIRTHDATE: [birth year] [facility] Test Date: 2018-03-23 Test Time: 09:09:15 Pat Name: SARAH TRIANA Department: Room: [facility] 1 Gender: M Physicist Nuclear: : 1960 Requested By: SANTIAGO LOVING Order Number: [id number] Reading MD: Elijah Santos MD Measurements Intervals [place] Rate: 143 P: DC: QRS: 123 QRSD: 87 T: -17 QT: 312 QTc: 481 Interpretive Statements Surprventriular tachycardia, most likely AVNRT Right axis deviation Borderline repolarization abnormality Borderline prolonged QT interval Artifact in lead(s) V2 Compared to ECG 03/21/2018 11:35:03 Junctional tachycardia now present Right-axis deviation now present Sinus rhythm no longer present Electronically Signed On 03-24-2018 4:57:06 PST by Elijah Santos MD CM:EKGRPT:ELECTROCARDIOGRAM REPORT [id number] SANTIAGO MCGOWAN DRAFT REPORT SANTIAGO LOVING DO
--- NOTE | ~2018-03-21 | EKG ---
[place], [place] ELECTROCARDIOGRAM REPORT NAME: SARAH TRIANA UNIT #: [id number] ROOM: [facility] DOCTOR: ISIDRO DRAFT REPORT BIRTHDATE: [birth year] [facility] Test Date: 2018-03-28 Test Time: 00:49:36 Pat Name: SARAH TRIANA Department: Room: [facility] 1 Gender: M Food Technologist: Xiomy Doss : 1960 Requested By: STEVAN MCDANIELS Order Number: [id number] Reading MD: Elijah Santos MD Measurements Intervals [place] Rate: 70 P: 50 AK: 188 QRS: 123 QRSD: 88 T: 16 QT: 470 QTc: 508 Interpretive Statements Sinus rhythm Probable left atrial enlargement Right axis deviation Borderline T wave abnormalities Prolonged QT interval Baseline wander in lead(s) V2,V3 Compared to ECG 03/26/2018 11:53:07 Prolonged QT interval now present T-wave abnormality still present Electronically Signed On 03-28-2018 15:59:48 PST by Elijah Santos MD CM:EKGRPT:ELECTROCARDIOGRAM REPORT 0049 [id number] STEVAN FELIX DRAFT REPORT STEVAN MCDANIELS
--- NOTE | ~2018-03-21 | EKG ---
[place], [place] ELECTROCARDIOGRAM REPORT NAME: SARAH TRIANA UNIT #: [id number] ROOM: 511 DOCTOR: ISIDRO DRAFT REPORT BIRTHDATE: [birth year] [facility] Test Date: 2018-03-23 Test Time: 07:21:22 Pat Name: SARAH TRIANA Department: Room: 511 1 Gender: M Business Mgr: Chanelle Merino : 1960 Requested By: SANTIAGO LOVING Order Number: [id number] Reading MD: Elijah Santos MD Measurements Intervals [place] Rate: 86 P: 65 AR: 225 QRS: 118 QRSD: 91 T: -7 QT: 385 QTc: 461 Interpretive Statements Sinus rhythm Prolonged AR interval LAE, consider biatrial enlargement Probable RVH w/ secondary repol abnormality Compared to ECG 03/21/2018 11:35:03 No significant changes Electronically Signed On 03-24-2018 4:56:13 PST by Elijah Santos MD CM:EKGRPT:ELECTROCARDIOGRAM REPORT 0721 [id number] SANTIAGO LOVING DO EPIPHANY DRAFT REPORT SANTIAGO LOVING DO
--- NOTE | ~2018-03-21 | EKG ---
[place], [place] ELECTROCARDIOGRAM REPORT NAME: SARAH TRIANA UNIT #: [id number] ROOM: 511 DOCTOR: ISIDRO DRAFT REPORT BIRTHDATE: [birth year] [facility] Test Date: 2018-03-21 Test Time: 11:35:03 Pat Name: SARAH TRIANA Department: Room: 511 Gender: M Patent Solicitor: Chanelle Merino : 1960 Requested By: DEVIN STEWART Order Number: [id number] Reading MD: Thor Scott MD Measurements Intervals [place] Rate: 79 P: 38 HI: 204 QRS: 121 QRSD: 88 T: 0 QT: 412 QTc: 473 Interpretive Statements Sinus rhythm Borderline prolonged HI interval Probable right ventricular hypertrophy No previous ECG available for comparison Electronically Signed On 03-21-2018 16:32:51 PST by Thor Scott MD CM:EKGRPT:ELECTROCARDIOGRAM REPORT 1135 [id number] DEVIN MCGOWAN DRAFT REPORT DEVIN STEWART DO
--- NOTE | ~2018-03-21 | EKG ---
[place], [place] ELECTROCARDIOGRAM REPORT NAME: SARAH TRIANA UNIT #: [id number] ROOM: 504 DOCTOR: ISIDRO DRAFT REPORT BIRTHDATE: [birth year] [facility] Test Date: 2018-03-26 Test Time: 11:53:07 Pat Name: SARAH TRIANA Department: Room: [facility] 1 Gender: M Veterinary Poultry Inspector: RANGEL : 1960 Requested By: ELIJAH SANTOS Order Number: [id number] Reading MD: Elijah Santos MD Measurements Intervals [place] Rate: 63 P: 57 DC: 192 QRS: 114 QRSD: 85 T: 2 QT: 402 QTc: 412 Interpretive Statements Sinus rhythm Left atrial enlargement Right axis deviation Abnormal R-wave progression, late transition Nonspecific T abnormalities, anterior leads Compared to ECG 03/23/2018 09:09:15 Atrial abnormality now present T-wave abnormality now present Electronically Signed On 03-26-2018 9:42:03 PST by Elijah Santos MD CM:EKGRPT:ELECTROCARDIOGRAM REPORT 1153 [id number] ELIJAH SANTOS MD EPIPHANY DRAFT REPORT ELIJAH SANTOS MD
[2018-03-21 11:48] LABS: BASO # 0.1 10*3/uL (0.0-0.1); BASO % 0.7 % (0.0-1.0); EOS # 0.1 10*3/uL (0.0-0.4); HEMATOCRIT 42.4 % (42.0-52.0); HEMOGLOBIN 14.3 g/dl (14.0-18.0); LYMPH # 1.5 10*3/uL (1.3-4.4); LYMPH % 20.9 % (27.0-41.0); MEAN CORPUSCULAR HGB CONC 33.7 g/dl (33.0-37.0); MEAN PLATELET VOLUME 12.8 fl (9.6-12.3); MONO # 0.8 10*3/uL (0.1-1.0); MONO % 11.1 % (3.0-9.0); NEUT # 4.6 10*3/uL (2.3-7.9); NEUT % 64.9 % (47.0-73.0); PLATELET COUNT AUTOMATED 258 10*3/uL (130-400); RED BLOOD COUNT 4.61 10*6/uL (4.50-5.90); RED CELL DISTRI WIDTH 16.5 % (0-14.5); WHITE BLOOD COUNT 7.1 10*3/uL (4.8-10.8)
[2018-03-21 11:59] LABS: ACT PARTIAL THROMBO TIME 25.3 SECONDS (20.8-31.5); INTERNATIONAL NORM RATIO 1.3 (2.0-3.5)
[2018-03-21 12:05] LABS: ALBUMIN 3.7 gm/dl (3.1-4.5); ALKALINE PHOSPHATASE 123 U/L (45-117); BUN 17 mg/dl (7-24); CHLORIDE 110 mmol/L (98-107); CREATININE 0.98 mg/dL (0.70-1.30); LIPASE 173 U/L (73-393); POTASSIUM 5.3 mmol/L (3.5-5.1); SGOT/AST 42 IU/L (3-35); SGPT/ALT 39 U/L (12-78); SODIUM 137 mmol/L (136-145); TOTAL PROTEIN 7.6 gm/dL (6.4-8.2)
[2018-03-21 12:06] LABS: TROPONIN I 0.027 ng/ml (<0.045)
[2018-03-21 12:15] LABS: BILIRUBIN NEGATIVE (NEGATIVE); BLOOD NEGATIVE (NEGATIVE); CLARITY SL CLOUDY (CLEAR); COLOR YELLOW (YELLOW); GLUCOSE NEGATIVE (NEGATIVE); KETONE NEGATIVE (NEGATIVE); LEUKO ESTERASE NEGATIVE (NEGATIVE); NITRITE NEGATIVE (NEGATIVE); SPECIFIC GRAVITY 1.015 (1.005-1.030)
[2018-03-21 12:28] LABS: BACTERIA TRACE; MUCOUS 1+; RBC 0-2 rbc/hpf (0-2); WBC 0-2 wbc/hpf (0-5)
--- NOTE | 2018-03-21 12:39 | NUR ---
PT RESTING ON THE EDGE OF THE BED ASKING IF HE CAN EAT, DR STEWART AWARE AND LUNCH TRAY ORDERED FOR PT.
--- NOTE | 2018-03-21 13:35 | NUR ---
PT SITTING UP EATING LUNCH--REID LEON RN
--- NOTE | 2018-03-21 13:50 | NUR ---
DR PARKINSON (ADMITTING MD) IN TO SEE PT AT THIS TIME--REID LEON RN
--- NOTE | 2018-03-21 14:05 | NUR ---
Contacted [facility] to fax current med list.
--- NOTE | 2018-03-21 14:09 | NUR ---
cta chest and doppler ordered ON THIS PT BY DR PARKINSON--REID LEON RN
--- NOTE | 2018-03-21 14:50 | NUR ---
US ORDERED DUE TO LEFT LOWER LEG WARM TO TOUCH WITH +1 EDEMA COMPARED TO RT LEG. PP+1 LEFT FOOT.PT STATES HE USE TO TAKE XERALTO BECAUSE OF DVT AND PE.-- --REID LEON RN
--- NOTE | 2018-03-21 15:10 | NUR ---
A 58, admitted to 5E, under the services of MUSHTAQ Roberson DO with a diagnosis of Dyspnea on Exertion,COPD Exacerbation. Chief complaint is Basic needs/Other Complaints. Patient arrived via stretcher from ER. Monitor applied. Initial assessment completed. Vital signs taken and recorded. MUSHTAQ ROBERSON DO notified of admission to the unit. Orders received. See assessment for past medical history, medications and allergies. Patient and/or family oriented to unit. [address] visitation policy reviewed. Clothing/patient valuable form completed. ANTONIO AUSTIN
--- NOTE | 2018-03-21 15:56 | NUR ---
Message left with [facility] consult for Dr. Yoon regarding psych history, lithium and tremors.
--- NOTE | 2018-03-21 17:32 | NUR ---
Spoke with Dr. Nicole regarding PO 30mg Kayexalate dose that was ordered in the ER but never given. See new orders.
[2018-03-21] MEDS ORDERED: HALDOL5 MG PO (18:50)
[2018-03-21] MEDS ORDERED: PULMICORT0.5 MG/2 M INH (18:52)
[2018-03-21] MEDS ORDERED: Lopressor25 MG PO (18:54)
[2018-03-21] MEDS ORDERED: EUCERIN CREME120 GM T (19:00)
[2018-03-21] MEDS ORDERED: CARDIOVID PLUS1 EACH PO (19:01)
[2018-03-21] MEDS ORDERED: METFORMIN850 MG PO (19:05)
--- NOTE | 2018-03-21 19:07 | NUR ---
Notified Dr. Andrew that patients med list is updated.
[2018-03-22] VITALS: BP 124/78; BP 133/99
--- NOTE | 2018-03-22 00:05 | NUR ---
CALLED DR. MARIA AND NOTIFIED HIM OF PT. STATING "I'M NOT GOING TO BE ABLE TO SLEEP." PATIENT CONTINUES TO HAVE TREMORS MORE OF THE ARMS AND HANDS AND LESS OF THE LEGS FEET BUT THEY ARE STILL TREMORING ALSO. DR. MARIA LOOKING AT HOME MEDICATIONS TO ORDER.
--- NOTE | 2018-03-22 01:42 | NUR ---
SEROQUEL OBTAINED FROM NURSING CATERING ASSISTANT AND GIVEN PER ORDER. DID NOT GIVE HALDOL.
--- NOTE | 2018-03-22 02:30 | NUR ---
SLEEPING. NO TREMORS NOTED WHEN PT. SLEEPING.
--- NOTE | 2018-03-22 03:24 | NUR ---
24 HR chart check completed.
[2018-03-22 06:19] LABS: HEMOGLOBIN 13.9 g/dl (14.0-18.0); LYMPH # 0.9 10*3/uL (1.3-4.4); LYMPH % 8.7 % (27.0-41.0); MEAN CELL VOLUME 92.9 fl (80.0-94.0); MEAN CORPUSCULAR HGB CONC 32.3 g/dl (33.0-37.0); MEAN PLATELET VOLUME 10.1 fl (9.6-12.3); MONO # 0.2 10*3/uL (0.1-1.0); MONO % 1.9 % (3.0-9.0); NEUT # 9.4 10*3/uL (2.3-7.9); NEUT % 88.9 % (47.0-73.0); RED BLOOD COUNT 4.63 10*6/uL (4.50-5.90); RED CELL DISTRI WIDTH 14.7 % (0-14.5); WHITE BLOOD COUNT 10.5 10*3/uL (4.8-10.8)
[2018-03-22 06:21] LABS: PLATELET COUNT AUTOMATED 171 10*3/uL (130-400)
[2018-03-22 06:43] LABS: ALBUMIN 3.7 gm/dl (3.1-4.5); BUN 23 mg/dl (7-24); CHLORIDE 107 mmol/L (98-107); CHOLESTEROL 169 mg/dL (<200); CREATININE 0.91 mg/dL (0.70-1.30); PHOSPHOROUS 3.8 mg/dL (2.5-4.9); SGOT/AST 23 IU/L (3-35); SGPT/ALT 41 U/L (12-78); SODIUM 136 mmol/L (136-145); TOTAL PROTEIN 7.5 gm/dL (6.4-8.2); TRIGLYCERIDES 39 mg/dl (<150); VLDL CHOLESTEROL 8 mg/dL (6-40)
[2018-03-22 06:50] LABS: ACT PARTIAL THROMBO TIME 25.1 SECONDS (20.8-31.5); ALKALINE PHOSPHATASE 124 U/L (45-117); HDL CHOLESTEROL 39 mg/dl (40-60); INTERNATIONAL NORM RATIO 1.2 (2.0-3.5); LDL CHOLESTEROL 122 mg/dL (9-159); THYROID STIM HORMONE (HS) 0.381 uIU/ml (0.358-4.75)
--- NOTE | 2018-03-22 06:51 | NUR ---
PT. STILL DROWSY FROM SEROQUEL AND DOSING BACK TO SLEEP.
[2018-03-22 07:01] LABS: POTASSIUM 4.2 mmol/L (3.5-5.1)
[2018-03-22 07:54] LABS: VITAMIN D, 25-HYDROXY 31.1 ng/mL (30-100)
[2018-03-22 08:00] VITALS: BP 126/76
[2018-03-22 12:00] VITALS: BP 123/80
[2018-03-22 16:00] VITALS: BP 140/78
--- NOTE | 2018-03-22 16:50 | NUR ---
CALLED DR LOVING PER PT REQUEST FOR CONTINUED COMPLAINTS OF NECK AND BACK PAIN RATED 7/10. HE STATED HE WILL PUT IN ORDERS
--- NOTE | 2018-03-22 17:10 | NUR ---
ADMINISTERED PO NORCO PER PT REQUEST FOR C/O NECK AND BACK PAIN RATED 7/10. WILL MONITOR FOR EFFECTIVENESS
--- NOTE | 2018-03-22 19:28 | NUR ---
PTS APICAL HEART RATE SUSTAINING 150'S. PT ASYMPTOMATIC. JEET FARAH PT HAS U CONSULT. JEET FARAH EVALUATED PT THIS MORNING. COGENTIN BID WAS STARTED FOR TREMORS. CALLED DR SANCHEZ AND INFORMED HIM. ORDER FOR STAT EKG RECEIVED
--- NOTE | 2018-03-22 19:53 | NUR ---
HR 150'S SUSTAINING. COMPOSITE BOND TECHNICIAN ORDERD AND PLACED PER CM [address] SANCHEZ ON FLOOR EXAMINED PATIENT. EKG DONE AND DR. SANCHEZ READ. PT. DENIES CP. TROPONIN ORDERED AND OBTAINED.
[2018-03-22 20:00] VITALS: BP 112/57
--- NOTE | 2018-03-22 20:06 | NUR ---
IV LOPRESSOR GIVEN PER STAT ORDER FOR 157 HEART RATE. INITIALLY HEART RATE DECREASED TO 148. WILL CONTINUE TO MONITOR.
--- NOTE | 2018-03-22 20:15 | NUR ---
CALLED DR. SANCHEZ AND NOTIFIED HIM OF HEART RATE PER CM 146-151. TO CALL HIM BACK BEFORE WE GIVEN NIGHT DOSE OF PO LOPRESSOR.
--- NOTE | 2018-03-22 20:18 | NUR ---
LAB CALLED WITH TROPONIN LEVEL 0.[address] SANCHEZ AND NOTIFIED HIM OF THIS. NO ORDERS RECEIVED.
--- NOTE | 2018-03-22 21:03 | NUR ---
CALLED AND SPOKE WITH DR. SANCHEZ ABOUT HR PER CM STILL 148. ORDERS RECEIVED INCREASING LOPRESSOR AND HOLDING EDGAR GRANADOS.
--- NOTE | 2018-03-22 23:36 | NUR ---
CALLED DR. SANCHEZ AND NOTIFIED HIM OF PATIENTS HEART RATE 140'S UNCHANGED. PT. SLEEPING. NO NEW ORDERS RECEIVED. CONTINUE TO MONITOR PATIENT.
[2018-03-23] VITALS (10 sets, daily range): BP systolic 90–121; BP diastolic 51–76
--- NOTE | 2018-03-23 00:16 | NUR ---
LAB CALLED CRITICAL TROPONIN 0.[address] ASNCHEZ AND NO ORDERS RECEIVED.
--- NOTE | 2018-03-23 01:00 | NUR ---
DR. SANCHEZ HERE BP OBTAINED AND DOCUMENTED. PT. SLEEPING DOES AROUSE WITH TACTILE AND VERBAL STIMULATION AND FOLLOWED COMMANDE BUT DOES FALL RIGHT BACK TO SLEEP.
--- NOTE | 2018-03-23 02:40 | NUR ---
SLEEPING, NO TREMORS NOTED.
--- NOTE | 2018-03-23 03:10 | NUR ---
UP TO BATHROOM VOIDED 550ML JUAN MIGUEL CLEAR STRONG SMELLING URINE. URINE DRUG TEST OBTAINED AND SENT TO LAB FOR TESTING. HR WENT TO 146 BMP PT. RETURNED TO BED AND BACK TO SLEEP.
[2018-03-23 03:18] LABS: URINE AMPHETAMINES < 1000 (1000ng/ml); URINE BARBITURATES < 200 (200ng/ml); URINE BENZODIAZEPINES < 200 (200ng/ml); URINE CANNABINOIDS (THC) < 50 (50ng/ml); URINE COCAINE < 300 (300ng/ml); URINE METHADONE < 300 (300ng/ml); URINE OPIATES > 300 (300ng/ml)
[2018-03-23 03:21] LABS: URINE PHENCYCLIDINE < 25 (25ng/ml)
--- NOTE | 2018-03-23 03:25 | NUR ---
CRITICAL TROPONIN CALLED BY LAB 0.[address] SANCHEZ AND NO NEW ORDERS RECEIVED AT THIS TIME.
--- NOTE | 2018-03-23 03:27 | NUR ---
24 HR chart check completed.
[2018-03-23 05:55] LABS: ALBUMIN 3.2 gm/dl (3.1-4.5); ALKALINE PHOSPHATASE 103 U/L (45-117); CHLORIDE 107 mmol/L (98-107); POTASSIUM 4.2 mmol/L (3.5-5.1); SGOT/AST 21 IU/L (3-35); SGPT/ALT 41 U/L (12-78); SODIUM 138 mmol/L (136-145); TOTAL PROTEIN 6.5 gm/dL (6.4-8.2)
[2018-03-23 05:58] LABS: BUN 39 mg/dl (7-24)
[2018-03-23 06:00] LABS: TROPONIN I 0.117 ng/ml (<0.045)
--- NOTE | 2018-03-23 06:05 | NUR ---
CRITICAL TROPONIN CALLED FROM LAB 0.[address] SANCHEZ AND NOTIFIED OF THIS AND NO NEW ORDERS AT THIS TIME.
[2018-03-23 06:12] LABS: BASO % 0.1 % (0.0-1.0); HEMATOCRIT 40.9 % (42.0-52.0); HEMOGLOBIN 13.3 g/dl (14.0-18.0); LYMPH # 1.2 10*3/uL (1.3-4.4); LYMPH % 8.7 % (27.0-41.0); MEAN CELL VOLUME 94.2 fl (80.0-94.0); MEAN CORPUSCULAR HGB 30.6 pg (27.0-31.0); MEAN CORPUSCULAR HGB CONC 32.5 g/dl (33.0-37.0); MONO # 0.5 10*3/uL (0.1-1.0); NEUT # 11.8 10*3/uL (2.3-7.9); NEUT % 86.5 % (47.0-73.0); PLATELET COUNT AUTOMATED 168 10*3/uL (130-400); RED BLOOD COUNT 4.34 10*6/uL (4.50-5.90); RED CELL DISTRI WIDTH 14.9 % (0-14.5); WHITE BLOOD COUNT 13.7 10*3/uL (4.8-10.8)
--- NOTE | 2018-03-23 06:45 | NUR ---
PT. WAS UP TO BATHROOM ALSO HAVING DRY COUGH AT THIS TIME. HR CONT TO BE 130'S 140'S.
--- NOTE | 2018-03-23 06:53 | NUR ---
PT. HR PAUSED AND STARTED NSR 80'S.
--- NOTE | 2018-03-23 07:10 | NUR ---
DR. MELTON CALLED IN AND NOTIFIED PT. CONDITION, LABS, HR. ORDERS RECEIVED TO GET EKG NOW AND HE WILL BE IN TO SEE PATIENT TODAY.
--- NOTE | 2018-03-23 07:22 | NUR ---
CALLED AND NOTIFIED DR. LOVING OF AND THAT I SPOKE WITH DR. MELTON AND HE WILL SEE PATIENT.
--- NOTE | 2018-03-23 09:38 | NUR ---
CALLED DR MELTON R/T CRITICAL TROPONIN WELL ELEVATED HR OF 140'S. ORDERS RECEIVED
--- NOTE | 2018-03-23 10:06 | NUR ---
CALLED [facility] AND REQUEST CALL FROM JEET FARAH REGARDING COGENTIN AND POSSIBLE NEED FOR DISCONTINUATION. PER MICHELLE MARCANO WILL BE COMING IN AT 4P-5P AND SHE WILL RELAY THE MESSAGE.
--- NOTE | 2018-03-23 12:50 | NUR ---
ADMINISTERED IV LABETALOL. PTS HR REMAINS AT [address] LOVING. ORDER FOR IV LABETALOL 5MG RECEIVED
--- NOTE | 2018-03-23 13:59 | NUR ---
NEW ORDER FOR DIGOXIN PER DR MELTON DUE TO ELEVATION IN PTS HEART RATE TO 140.
--- NOTE | 2018-03-23 18:16 | NUR ---
SHILPA FROM [facility] CALLED TO CHECK ON PT. HE STARTED TALKING ABOUT THE PTS HOME MEDICATIONS AND I REALIZED THE MEDS HE WAS MENTIONING WERE NOT ON THE CURRENT LIST WE HAVE. I CALLED DR LOVING AND DR MELTON AND INFORMED THEM THAT PT WAS TO BE TAKING PO CARDIZEM BID. ORDERS RECEIVED. I WILL UPDATE MED LIST
[2018-03-23] MEDS ORDERED: ACYCLOVIR400 MG PO (18:25)
[2018-03-23] MEDS ORDERED: LANTUS SOL100 UNIT/1 SC (18:32)
[2018-03-23] MEDS ORDERED: VITAMIN D32000 UNIT PO (18:33)
[2018-03-23] MEDS ORDERED: CARDIZEM120 MG PO (18:33)
[2018-03-23] MEDS ORDERED: MELATONIN3 MG PO (18:35)
--- NOTE | 2018-03-23 19:58 | NUR ---
PATIENT AWAKE SITTING UP IN BED. RESPIRATIONS EASY, NON-LABORED. NO COMPLAINTS VOICED. WILL CONTINUE TO MONITOR. CALL LIGHT LEFT IN REACH.
[2018-03-24] VITALS (7 sets, daily range): BP systolic 104–137; BP diastolic 74–99
--- NOTE | 2018-03-24 02:49 | NUR ---
PATIENT TAKEN OFF BIPAP AT THIS TIME. O2 APPLIED VIA 4L NC. RESPIRATORY NOTIFIED. WILL MONITOR. CALL LIGHT LEFT IN REACH.
[2018-03-24 06:45] LABS: BASO % 0.1 % (0.0-1.0); HEMATOCRIT 38.6 % (42.0-52.0); HEMOGLOBIN 12.5 g/dl (14.0-18.0); LYMPH # 0.9 10*3/uL (1.3-4.4); LYMPH % 8.7 % (27.0-41.0); MEAN CELL VOLUME 95.8 fl (80.0-94.0); MEAN CORPUSCULAR HGB CONC 32.4 g/dl (33.0-37.0); MEAN PLATELET VOLUME 11.2 fl (9.6-12.3); MONO # 0.6 10*3/uL (0.1-1.0); MONO % 6.2 % (3.0-9.0); NEUT # 8.4 10*3/uL (2.3-7.9); NEUT % 84.3 % (47.0-73.0); PLATELET COUNT AUTOMATED 164 10*3/uL (130-400); RED BLOOD COUNT 4.03 10*6/uL (4.50-5.90); RED CELL DISTRI WIDTH 15.1 % (0-14.5)
[2018-03-24 07:23] LABS: ALBUMIN 3.1 gm/dl (3.1-4.5); BUN 36 mg/dl (7-24); CHLORIDE 110 mmol/L (98-107); POTASSIUM 4.9 mmol/L (3.5-5.1); SGOT/AST 20 IU/L (3-35); SGPT/ALT 43 U/L (12-78); SODIUM 138 mmol/L (136-145)
[2018-03-24 07:26] LABS: ALKALINE PHOSPHATASE 87 U/L (45-117); TOTAL PROTEIN 6.2 gm/dL (6.4-8.2)
--- NOTE | 2018-03-24 09:00 | NUR ---
Sand Analyst in to talk to patient. Patient states lives at a residential in [place]. There are 3 steps in the home. Physician: Shruti Mcmahon [facility] Home health services: none Patient's level of ADLs: INDEPENDENT Patient has working utilities: yes DME: none Follow-up physician's appointment after d/c: will be made by the hospitalist nurse director upon discharge Does patient want to access PORTAL?: no Discharge plan discussed with patient. He lives at a residential in [place] and plans on returning there upon discharge. He is independent in his ADLs and ambulation. Discussed home health services and he denies any home needs at this time. When medically stable he will be discharged to home. GABBY MILLS
--- NOTE | 2018-03-24 10:58 | NUR ---
PATIENT CURRENTLY NPO FOR STRESS TEST. HOLDING ALL MEDICATIONS UNTIL AFTER STRESS TEST.
--- NOTE | 2018-03-24 11:08 | NUR ---
PATIENT TAKEN DOWN FOR STRESS TEST AT THIS TIME.
--- NOTE | 2018-03-24 12:27 | NUR ---
INFORMED CONSENT SIGNED FOR LEXISCAN STRESS TEST WITH DR. MELTON. RESTING EKG NSR WITH BIGEMINY, HR 69, BP 102/70. PULSE OX 97% AND LUNGS CLEAR. COMPLETED ONE MINUTE OF LEXISCAN PROTOCOL RECEIVING LEXISCAN 0.4MG OVER 10 SECONDS. INFREQUENT PVC'S NOTED WITH NO ST CHANGES. LAST RECOVERY HR 90, BP 112/68. WAITING NUCLEAR SCANNING IN STABLE CONDITION.
--- NOTE | 2018-03-24 15:48 | NUR ---
Faxed clinicals to [facility] at [phone] as requested
--- NOTE | 2018-03-24 20:24 | NUR ---
NOTIFIED OF PATIENT HR IN 150S. DISCUSSED PATIENT GOING IN & OUT OF SVT ON 03/23/18 AND 'S ORDERS FOR LABETOLOL, DIGOXIN, AND DAILY PO CARDIZEM. INSTRUCTED TO CALL .
--- NOTE | 2018-03-24 20:28 | NUR ---
'S ANSWERING SERVICE CALLED AT THIS TIME. DR.MILLER CUADRA. REQUESTED RETURN PHONE CALL.
--- NOTE | 2018-03-24 20:31 | NUR ---
CALLED BACK. INSTRUCTED TO GIVE 5MG IV LOPRESSOR X1 DOSE NOW.
--- NOTE | 2018-03-24 21:30 | NUR ---
PO CONGENTIN ADMINISTERED PER ORDER AT THIS TIME. IT WAS PASSED ON IN REPORT THAT NURSING IS TO ENCOURAGE PATIENT TO TAKE THIS DUE TO S/S OF EPS. PATIENT AGREEABLE. WILL MONITOR. CALL LIGHT LEFT IN REACH.
--- NOTE | 2018-03-24 21:37 | NUR ---
'S ANSWERING SERVICE PAGED AGAIN AT THIS TIME.
--- NOTE | 2018-03-24 21:40 | NUR ---
CALLED BACK. INSTRUCTED TO HOLD CANCEL IV LOPRESSOR AND PO CARDIZEM PATIENT'S HR NOW 70S-80S
--- NOTE | 2018-03-24 23:09 | NUR ---
120 MG PO CARDIZEM GIVEN PER 'S ORDER. WILL MONITOR.
--- NOTE | 2018-03-24 23:36 | NUR ---
AWARE THAT HR STILL 140S-150S. INSTRUCTED TO GIVE MEDICATION A LITTLE MORE TIME TO WORK.
[2018-03-25] VITALS (14 sets, daily range): BP systolic 89–138; BP diastolic 60–87
--- NOTE | 2018-03-25 00:05 | NUR ---
DISCUSSED HR 150S STILL AFTER 120 MG PO CARDIZEM GIVEN AT 2309. INSTRUCTED TO CALL .
--- NOTE | 2018-03-25 00:14 | NUR ---
'S ANSWERING SERVICE CALLED PER 'S REQUEST.
--- NOTE | 2018-03-25 00:16 | NUR ---
CALLED BACK. ORDER RECEIVED FOR 5MG IV LOPRESSOR NOW X1 DOSE. ADDITIONAL ORDER RECEIVED FOR 5MG IV LOPRESSOR Q2H PRN FOR HR GREATER THAN 120.
--- NOTE | 2018-03-25 00:24 | NUR ---
IV LOPRESSOR GIVEN PER 'S ORDER. WILL MONITOR.
--- NOTE | 2018-03-25 00:46 | NUR ---
NOTIFIED OF PATIENT'S HR REMAINING 140S-160S. RN ASKED DR TO COME TO FLOOR TO SEE PT. PATIENT VERY SOB AND APPEARS VERY FATIGUED. PATIENT DENIES CHEST PAIN, BUT RESP RATE 24-28 AT THIS TIME. STATES HE WILL BE UP TO SEE PATIENT.
--- NOTE | 2018-03-25 01:14 | NUR ---
5 MG IV LOPRESSOR ADMINISTERED PER 'S ORDER. HERE AT BEDSIDE
--- NOTE | 2018-03-25 01:16 | NUR ---
CALLED BACK. ORDER RECEIVED FOR 5MG IV LOPRESSOR NOW X1 DOSE. ADDITIONAL ORDER RECEIVED FOR 5MG IV LOPRESSOR Q2H PRN FOR HR GREATER THAN 120.
--- NOTE | 2018-03-25 01:24 | NUR ---
CALLED REGARDING SITUATION. WILL BE TRANSFERRING PATIENT TO ICU. SHIFT DIRECTOR NOTIFIED.
--- NOTE | 2018-03-25 01:30 | NUR ---
IVF INITIATED AT 100 ML/HR PER 'S ORDER. INFUSING THROUGH RIGHT AC IV. ADDITIONAL NEW IV SITE STARTED IN L FOREARM.
--- NOTE | 2018-03-25 01:40 | NUR ---
PT. RECEIVED FROM , REPORT RECEIVED FROM DANIELLE. VS. 97.5-144-26, 93/67, PULSE OX 92% ON 3L NC. DR. SKINNER AT PATIENT BEDSIDE. ALL BELONGINGS RECEIVED WITH PATIENT. ORTEGA SPEAR RN
--- NOTE | 2018-03-25 01:55 | NUR ---
PATIENT TRANSFERRED TO ICU BED 1. BEDSIDE REPORT GIVEN TO KAITLYNN CONTRERAS.
--- NOTE | 2018-03-25 02:26 | NUR ---
ESMOLOL GTT INFUSING AT 50MCG/KG/MIN.
--- NOTE | 2018-03-25 02:34 | NUR ---
ESMOLOL GTT WAS TITRATED TO 100MCG/KG/MIN. HR DOWN TO 133/MIN BP 95/64(75).
--- NOTE | 2018-03-25 02:50 | NUR ---
DR MOHAN CALLS BACK....CONDITION REVIEWED...NO NEW ORDERS RECEIVED.
--- NOTE | 2018-03-25 03:27 | NUR ---
PT CONVERTED TO NSR 68/MIN. TITRATING ESMOLOL DOWN FROM 75 MCG/KG/MIN.
--- NOTE | 2018-03-25 03:46 | NUR ---
ESMOLOL GTT IS OFF. HR REMAINS NSR 72/MIN.
--- NOTE | 2018-03-25 04:40 | NUR ---
PT PUTS CALL LIGHT ON TO INFORM THE NEED TO VOID. ASSISTED PT WITH URINAL IN SEATED POSITION IN BED. NO DISTRESS. HR REMAINS 72/MIN.
--- NOTE | 2018-03-25 05:18 | NUR ---
DR SKINNER HERE. UPDATED ON PT CONDITION.
--- NOTE | 2018-03-25 07:28 | NUR ---
Shift chart check completed.24 HR chart check completed.
--- NOTE | 2018-03-25 08:44 | NUR ---
ON ASSESSMENT PATIENT IS EASILY AROUSED. HE HAS A FLAT AFFECT, POOR EYE CONTACT, MAKES AUDIBLE RESPONSES. DENIES PAIN/SHORTNESS OF BREATH. MONITOR IS NSR 60'S. ALVARADO ROBLES IN PLACE. SEE ALL APPRORPRIATE INTERVENTIONS.
--- NOTE | 2018-03-25 09:00 | NUR ---
Carrier Associate in to see patient. No new needs or request at this time. He denies any home needs. When medically stable he will be discharged to his [facility] in [place]. conference planner following.
--- NOTE | 2018-03-25 09:04 | NUR ---
Shift chart check completed.
--- NOTE | 2018-03-25 11:42 | NUR ---
HALDOL GIVEN FOR INCREASING RESTLESSNESS & FUSSING WITH EVERYTHING. PATIENT VOICED UNDERSTANDING OF MED. IVF CONTINUE ORDERED. REFUSING TO GET UP IN CHAIR AT THIS TIME
--- NOTE | 2018-03-25 13:00 | NUR ---
RESTING BETTER & SAYS HE FEELS BETTER SINCE GIVEN HALDOL PO. LESS RESTLESS & DOZING INTERMITTENTLY
--- NOTE | 2018-03-25 16:17 | NUR ---
IV FLUIDS D/C PER ORDER. PT RESTING EASILY IN BED. NO DYSRHYTHMIAS.
--- NOTE | 2018-03-25 19:14 | NUR ---
RESTING EASILY AT THIS TIME. NO DYSRHYTHMIAS.
--- NOTE | 2018-03-25 20:56 | NUR ---
ASSUMED CARE OF PATIENT AT THIS TIME. PT AWAKE IN BED, A&OX3 WITH SLOW RESPONSES. PATIENT DENIES CP/SOB/GEN DISCOMFORT. RESPIRATIONS EASY, NON-LABORED ON ROOM AIR. HR 60S PER CM. WILL MONITOR. CALL LIGHT LEFT IN REACH.
[2018-03-26] VITALS: BP 108/75
--- NOTE | 2018-03-26 04:00 | NUR ---
PT ASLEEP IN BED. RESPIRATIONS EASY. NO S/S OF DISTRESS NOTED. HR 60S-80S PER CM. WILL MONITOR. CALL LIGHT LEFT IN REACH.
--- NOTE | 2018-03-26 05:55 | NUR ---
PT ASSISTED OOB INTO BATHROOM AND BACK INTO BED. VERY SOB WITH MINIMAL EXERTION. POX CURRENTLY 95% ON ROOM AIR. WILL MONITOR. CALL LIGHT LEFT IN REACH.
[2018-03-26 07:18] LABS: BASO % 0.1 % (0.0-1.0); HEMATOCRIT 43.3 % (42.0-52.0); HEMOGLOBIN 13.6 g/dl (14.0-18.0); LYMPH # 1.4 10*3/uL (1.3-4.4); LYMPH % 14.6 % (27.0-41.0); MEAN CORPUSCULAR HGB 30.2 pg (27.0-31.0); MEAN CORPUSCULAR HGB CONC 31.4 g/dl (33.0-37.0); MEAN PLATELET VOLUME 11.1 fl (9.6-12.3); MONO # 0.7 10*3/uL (0.1-1.0); MONO % 7.7 % (3.0-9.0); NEUT # 7.3 10*3/uL (2.3-7.9); NEUT % 76.1 % (47.0-73.0); PLATELET COUNT AUTOMATED 181 10*3/uL (130-400); RED BLOOD COUNT 4.51 10*6/uL (4.50-5.90); RED CELL DISTRI WIDTH 15.2 % (0-14.5); WHITE BLOOD COUNT 9.6 10*3/uL (4.8-10.8)
[2018-03-26 07:46] LABS: BUN 30 mg/dl (7-24); CHLORIDE 110 mmol/L (98-107); CREATININE 1.02 mg/dL (0.70-1.30); POTASSIUM 4.9 mmol/L (3.5-5.1); SODIUM 141 mmol/L (136-145)
[2018-03-26 08:00] VITALS: BP 116/82
--- NOTE | 2018-03-26 10:18 | NUR ---
CALL RECEIVED FROM [employer] FOR HR IN 130s. ARRIVED TO PTs BEDSIDE AND FOUND ASSESSING PT. VERBAL ORDER FOR 6MG OF ADENOSIN GIVEN. ADMINISTERED PER ORDERS. HR REMAINED IN 130s WITH NO CHANGE. ORDERED 12MG ADENOSIN. ADMINISTERED PER ORDERS. PT BECAME FLUSHED WITH SOME LABORED BREATHING NOTICED. HR DROPPED TO 50s AND SUSTAINED NSR IN 70s. COLOR AND BREATHING BACK TO NORMAL. CALL LIGHT IN REACH. VSS. NO VOICED COMPLAINTS AT THIS TIME. SEE MAR. WILL CONTINUE TO MONITOR.
--- NOTE | 2018-03-26 11:12 | NUR ---
BSG 158. SEE MAR FOR COVERAGE. HR NSR IN 70s PER CM.
[2018-03-26 12:00] VITALS: BP 122/87
--- NOTE | 2018-03-26 13:45 | NUR ---
HR IN 60s PER CM.
[2018-03-26 16:00] VITALS: BP 111/72
--- NOTE | 2018-03-26 16:30 | NUR ---
HR 73 PER CM. TOLERATED PO MEDS WELL. CALL LIGHT IN REACH. 2L O2 IN PLACE AFTER AMBULATING FROM RESTROOM. PT FEELING SOB AT THIS TIME.
--- NOTE | 2018-03-26 17:51 | NUR ---
HR 73 PER CM.
[2018-03-26 19:36] VITALS: BP 126/73
--- NOTE | 2018-03-26 22:16 | NUR ---
SNACK GIVEN. BSG 164 AND WAS COVERED WITH 2 UNITS REGULAR INSULIN PER ORDER. PT. IN GOOD SPIRITS.
--- NOTE | 2018-03-26 23:00 | NUR ---
24 HR chart check completed.
[2018-03-27] VITALS: BP 111/66
--- NOTE | 2018-03-27 00:48 | NUR ---
CALLED DR. SKINNER AND NOTIFIED HIM OF PT. HEART RATED PER CM 65-67 AND HE STATED "IT'S OKAY TO GIVEN THE DIGOXIN".
--- NOTE | 2018-03-27 01:12 | NUR ---
PT. HR 65 PER CM. PT. UP TO BATHROOM HR WENT TO 98 AND PATIENT WENT BACK TO BED. HR WENT BACK DOWN TO 65 PER CM. IV DIGOXIN WAS GIVEN PER ORDER PER DR. SUSANNE LÓPEZ VERY SLOW MORE THAN 5 MINUTES. PT. HR REMAINED IN 62-66 PER CM.
--- NOTE | 2018-03-27 01:35 | NUR ---
HR CURRENTLY 60 PER CM. PT. SLEEPING
[2018-03-27 06:40] LABS: HEMATOCRIT 41.6 % (42.0-52.0); HEMOGLOBIN 13.6 g/dl (14.0-18.0); MEAN CELL VOLUME 94.3 fl (80.0-94.0); MEAN CORPUSCULAR HGB 30.8 pg (27.0-31.0); MEAN CORPUSCULAR HGB CONC 32.7 g/dl (33.0-37.0); MEAN PLATELET VOLUME 11.3 fl (9.6-12.3); PLATELET COUNT AUTOMATED 184 10*3/uL (130-400); RED BLOOD COUNT 4.41 10*6/uL (4.50-5.90); RED CELL DISTRI WIDTH 14.8 % (0-14.5); WHITE BLOOD COUNT 12.1 10*3/uL (4.8-10.8)
[2018-03-27 07:06] LABS: BUN 34 mg/dl (7-24); CHLORIDE 110 mmol/L (98-107); POTASSIUM 4.8 mmol/L (3.5-5.1); SODIUM 139 mmol/L (136-145)
[2018-03-27 07:07] LABS: CREATININE 0.83 mg/dL (0.70-1.30)
[2018-03-27 07:48] LABS: TOTAL CELLS COUNTED 100 #CELLS
[2018-03-27 07:49] LABS: BURR CELLS MODERATE; DIFFERENTIAL COMMENT M; POLYCHROMASIA SLIGHT; SCHISTOCYTES FEW
[2018-03-27 07:50] LABS: OVALOCYTES FEW; PLATELET SUFFICIENCY NORMAL (NORMAL)
--- NOTE | 2018-03-27 10:30 | NUR ---
Dye Room Helper in to see patient. No new needs or request at this time. He denies any home needs. When medically stable he will be discharged to his [facility] in [place]. manager consumer insights following.
[2018-03-27 12:00] VITALS: BP 136/79
--- NOTE | 2018-03-27 14:32 | NUR ---
[facility] NURSE MICHAEL TOOK CONSULT FOR DR DEAN.
[2018-03-27 16:00] VITALS: BP 121/72
--- NOTE | 2018-03-27 16:00 | NUR ---
PATIENT RESTING COMFORTABLY IN HIS BED AT THIS TIME. C/O FEELING TIRED. PATIENT'S RESP EASY, NO S/S OF DISTRESS. CALL LIGHT WITHIN REACH.
[2018-03-27 20:00] VITALS: BP 133/69
--- NOTE | 2018-03-27 21:57 | NUR ---
24 HR chart check completed.
[2018-03-28] VITALS: BP 125/76
--- NOTE | 2018-03-28 00:35 | NUR ---
PT. BEGAN SVT PER MONITOR.
--- NOTE | 2018-03-28 00:40 | NUR ---
PT. FELT A FLUTTER AND WHEN HE WENT TO THE BATHROOM AND HEART RATE NOW 144PER CM. CALLED DR. MCDANIELS AND NOTIFIED. EKG ORDERED.
--- NOTE | 2018-03-28 00:43 | NUR ---
HAD PATIENT VAGUAL MANUVER COUGHING AND BEARING DOWN AND PATIENT CONVERTED TO NSR 70-90'S EKG AND LABS BEING DONE. DR. SKINNER AND DR. MCDANIELS ON FLOOR AND NOTIFIED. PT. HAD SOME LEFT ARM PAIN AT THIS TIME BUT RELIEVED.
[2018-03-28 01:27] LABS: TROPONIN I 0.114 ng/ml (<0.045)
--- NOTE | 2018-03-28 01:29 | NUR ---
CALLED CRITICAL [facility] [address] MCDANIELS.
[2018-03-28 06:54] LABS: HEMATOCRIT 43.8 % (42.0-52.0); MEAN CELL VOLUME 93.6 fl (80.0-94.0); MEAN CORPUSCULAR HGB 29.9 pg (27.0-31.0); MEAN PLATELET VOLUME 11.2 fl (9.6-12.3); PLATELET COUNT AUTOMATED 186 10*3/uL (130-400); RED BLOOD COUNT 4.68 10*6/uL (4.50-5.90); RED CELL DISTRI WIDTH 14.6 % (0-14.5); WHITE BLOOD COUNT 14.1 10*3/uL (4.8-10.8)
--- NOTE | 2018-03-28 07:00 | NUR ---
PT. REMAIN IN NSR FOR THE REST OF THE SHIFT. NO DISTRESS NOTED.
[2018-03-28 07:13] LABS: BURR CELLS MANY; PLATELET SUFFICIENCY NORMAL (NORMAL); TOTAL CELLS COUNTED 100 #CELLS
[2018-03-28 07:25] LABS: ALBUMIN 3.1 gm/dl (3.1-4.5); ALKALINE PHOSPHATASE 85 U/L (45-117); BUN 31 mg/dl (7-24); CHLORIDE 107 mmol/L (98-107); CREATININE 0.85 mg/dL (0.70-1.30); PHOSPHOROUS 3.6 mg/dL (2.5-4.9); POTASSIUM 5.1 mmol/L (3.5-5.1); SGOT/AST 16 IU/L (3-35); SGPT/ALT 61 U/L (12-78); SODIUM 139 mmol/L (136-145)
--- NOTE | 2018-03-28 11:00 | NUR ---
Warhead Maintenance Specialist in to see patient. No new needs or request at this time. He denies any home needs. When medically stable he will be discharged to his correction in [place]. cyber policy and strategy planner following.
[2018-03-28 12:00] VITALS: BP 119/77
--- NOTE | 2018-03-28 15:35 | NUR ---
Patients therapeutic case manager from the [place],eHlen Hunter RN stopped in to check on patient. We discussed possible discharge soon and he is due for his monthly Halodal injection next week. She gave me patients Guardian name: Octavia Daily . Helen can be reached at ext [phone] FAX CELL [phone]
[2018-03-28 16:00] VITALS: BP 108/68
[2018-03-28 20:00] VITALS: BP 123/78
[2018-03-29] VITALS: BP 105/69
[2018-03-29 08:00] VITALS: BP 114/80
[2018-03-29] MEDS ORDERED: PREDNISONE10 MG PO (09:23)
[2018-03-29] MEDS ORDERED: DILTIAZEM HCL240 M1 PO (09:23)
[2018-03-29] MEDS ORDERED: DIGOXIN125 MCG PO (09:23)
[2018-03-29] MEDS ORDERED: AVPAK AZITHROM250 MG PO (09:23)
--- NOTE | 2018-03-29 10:32 | NUR ---
Spoke with Chantel at prison and notified them of patients discharge and he needs a ride.
--- NOTE | 2018-03-29 11:11 | NUR ---
Spoke with Ashely regarding patients lost jacket. I verified the address and phone numbers of fpc. [phone] is resident line is staff line. address [address] [place] [phone]
--- NOTE | 2018-03-29 11:15 | NUR ---
Discharge instructions reviewed with patient/family. Patient receptive and verbalizes understanding. Follow-up care arranged. Written instructions given to patient/family. Patient was escorted from unit by staff member with medications, wallet and contents, and lost item investigation form filled out for patients missing [employer] jacket. ANTONIO AUSTIN
== END 2018-03-29 11:15 | DRG 191 ==
LOC: ED 11:18 → EDHOLD 13:37 → 5E 13:37 → ICCU 03-25 01:45 → 5E 03-25 20:54
PROVIDERS: Emergency Medicine; Family Medicine; Internal Medicine; Student in an Organized Health Care Education/Training Program; ADMIT Internal Medicine
PROC: 3E073KZ Introduction of Other Diagnostic Substance into Coronary Artery, Percutaneous Approach (ICD-10-PCS; principal; 2018-03-24)
PROC: 4A02XM4 Measurement of Cardiac Total Activity, External Approach (ICD-10-PCS; principal; 2018-03-24)
DX: J44.1 Chronic obstructive pulmonary disease with (acute) exacerbation (principal); I50.32 Chronic diastolic (congestive) heart failure; F20.0 Paranoid schizophrenia; D68.9 Coagulation defect, unspecified; I47.1 Supraventricular tachycardia; I13.0 Hypertensive heart and chronic kidney disease with heart failure and stage 1 through stage 4 chronic kidney disease, or unspecified chronic kidney disease; I95.9 Hypotension, unspecified; E16.2 Hypoglycemia, unspecified; N18.3 Chronic kidney disease, stage 3 (moderate); G40.909 Epilepsy, unspecified, not intractable, without status epilepticus; G47.33 Obstructive sleep apnea (adult) (pediatric); E87.5 Hyperkalemia; E87.8 Other disorders of electrolyte and fluid balance, not elsewhere classified; F17.200 Nicotine dependence, unspecified, uncomplicated; F31.9 Bipolar disorder, unspecified; K21.9 Gastro-esophageal reflux disease without esophagitis; N40.0 Benign prostatic hyperplasia without lower urinary tract symptoms; E78.2 Mixed hyperlipidemia; A60.00 Herpesviral infection of urogenital system, unspecified; K59.09 Other constipation; E66.3 Overweight; I27.20 Pulmonary hypertension, unspecified; R25.1 Tremor, unspecified; Z71.6 Tobacco abuse counseling; Z88.6 Allergy status to analgesic agent; Z88.8 Allergy status to other drugs, medicaments and biological substances; Z86.718 Personal history of other venous thrombosis and embolism; Z79.51 Long term (current) use of inhaled steroids; Z79.1 Long term (current) use of non-steroidal anti-inflammatories (NSAID); Z79.899 Other long term (current) drug therapy; Z68.29 Body mass index [BMI] 29.0-29.9, adult

== ENCOUNTER 2018-04-02 10:08 | Emergency (ER) | payer MEDICARE, OTHER ==
[~2018-04-02] VITALS: Ht 182.8 cm; Wt 81.6 kg
--- NOTE | ~2018-04-02 | EKG ---
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
[2018-04-02 10:08] VITALS: BP 97/64
[~2018-04-02 10:08] MED LIST changes: +ACYCLOVIR400 MG PO; +AVPAK AZITHROM250 MG PO; +CARDIOVID PLUS1 EACH PO; +CARDIZEM120 MG PO; +DIGOXIN125 MCG PO; +DILTIAZEM HCL240 M1 PO; +EUCERIN CREME120 GM T; +LANTUS SOL100 UNIT/1 SC; +Lopressor25 MG PO; +MELATONIN3 MG PO; +METFORMIN850 MG PO; +PULMICORT0.5 MG/2 M INH; +VITAMIN D32000 UNIT PO
[2018-04-02 10:53] LABS: BUN 35 mg/dl (7-24); CHLORIDE 107 mmol/L (98-107); CREATININE 1.07 mg/dL (0.70-1.30); SODIUM 136 mmol/L (136-145)
[2018-04-02 11:48] LABS: HEMATOCRIT 45.3 % (42.0-52.0); HEMOGLOBIN 15.2 g/dl (14.0-18.0); MEAN CELL VOLUME 90.8 fl (80.0-94.0); MEAN CORPUSCULAR HGB 30.5 pg (27.0-31.0); MEAN CORPUSCULAR HGB CONC 33.6 g/dl (33.0-37.0); MEAN PLATELET VOLUME 11.1 fl (9.6-12.3); PLATELET COUNT AUTOMATED 144 10*3/uL (130-400); RED BLOOD COUNT 4.99 10*6/uL (4.50-5.90); RED CELL DISTRI WIDTH 14.3 % (0-14.5); WHITE BLOOD COUNT 11.7 10*3/uL (4.8-10.8)
[2018-04-02 12:06] LABS: TOTAL CELLS COUNTED 100 #CELLS
[2018-04-02 12:07] LABS: BURR CELLS FEW; PLATELET SUFFICIENCY NORMAL (NORMAL)
== END 2018-04-02 13:22 | disposition home or self-care (01) ==
LOC: ED 10:08
PROVIDERS: Emergency Medicine
DX: D72.829 Elevated white blood cell count, unspecified (principal); J44.9 Chronic obstructive pulmonary disease, unspecified; R73.9 Hyperglycemia, unspecified; K21.9 Gastro-esophageal reflux disease without esophagitis; E66.01 Morbid (severe) obesity due to excess calories; I11.0 Hypertensive heart disease with heart failure; I50.32 Chronic diastolic (congestive) heart failure; F17.200 Nicotine dependence, unspecified, uncomplicated; Z88.6 Allergy status to analgesic agent; Z88.8 Allergy status to other drugs, medicaments and biological substances; Z79.899 Other long term (current) drug therapy; Z86.718 Personal history of other venous thrombosis and embolism

== ENCOUNTER 2018-09-19 11:27 | Inpatient (IN) | payer OTHER ==
[~2018-09-19] VITALS: Ht 182.9 cm; Wt 112.6 kg
--- NOTE | ~2018-09-19 | CON ---
[place], [place] REPORT OF CONSULTATION NAME: SARAH TRIANA UNIT #: [id number] ROOM: 507 DOCTOR: KASSY ARELLANO,KVNG BIRTHDATE: [birth year] DOS: 09/20/2018 REASON FOR CONSULTATION: Near syncope, hypertension. HISTORY OF PRESENT ILLNESS: The patient present to the Emergency Room with dizziness and shortness of breath. He follows at [facility]. The patient is somewhat poor historian, hence history was obtained from the chart and the admitting physician also as well as from the patient. Apparently, the patient has been complaining of some intermittent dizziness and some "near syncope", but he did not pass out, but he denies any chest pain or shortness breath. He has had occasional heart palpitations once every 3-4 days these palpitations lasts for few seconds, but no associated dizziness or syncope. He had also mild short of breath for the past 1 month, but no PND, no orthopnea. The patient is somewhat a poor historian, but denies any fever and chills. No nausea, vomiting, diarrhea. No family at bedside. REVIEW OF SYSTEMS: Review of 10 systems are limited due to the patient being a poor historian and negative except as mentioned above in the history of present illness. PAST MEDICAL HISTORY: 1. Hypertension. 2. Severe pulmonary hypertension. 3. Right heart failure. 4. Tricuspid regurgitation. 5. DVT and pulmonary hypertension in 2017. 6. Acid reflux. 7. Dyslipidemia. 8. Benign prostatic hypertrophy. 9. Bipolar disorder. 10. Non-morbid obesity. 11. Paranoid disorder. SOCIAL HISTORY: The patient does smoke cigarettes, does not use illicit drugs. Quit drinking 8 years ago. PAST SURGICAL HISTORY: History of thyroidectomy. FAMILY HISTORY: Father from cancer. Mother is healthy. ALLERGIES: THE PATIENT IS ALLERGIC TO ASPIRIN, TESTOSTERONE AND VALPROIC ACID. HOME MEDICATIONS: Reviewed. PHYSICAL EXAMINATION: VITAL SIGNS: Blood pressure 109/72, pulse 69, respiration rate was 18. Weight is 112 kg, BMI 33.7. GENERAL: The patient is alert, comfortable, in no acute distress. HEAD AND NECK: Pupils are round and equal. No jaundice. Tongue was moist and pharynx clear. [place], [place] REPORT OF CONSULTATION NAME: SARAH TRIANA UNIT #: [id number] ROOM: 507 DOCTOR: KASSY ARELLANO,KVNG BIRTHDATE: [birth year] NECK: Supple. The patient has elevated neck veins. No carotid bruit. CHEST: Symmetrical, nontender. LUNGS: Few scattered rhonchi, diminished at bases. HEART: Regular rhythm, no S3, no palpable thrills. ABDOMEN: Benign, nontender. Bowel sounds normal. EXTREMITIES: Showed no edema. Distal pulses palpable. SKIN: Warm and dry. No cyanosis, no clubbing. RECTAL: Deferred. GENITOURINARY: Deferred. NEUROLOGIC: No focal neurologic deficit. PSYCHIATRIC: The patient was somewhat poor historian and slightly sleepy. REVIEW OF THE DIAGNOSTIC TESTS: EKG, labs, and imaging studies reviewed. Echo from 03/2018 showed severe pulmonary hypertension, normal LV function and tricuspid regurgitation. IMPRESSION: 1. Near syncope, possibly due to low blood pressure. 2. Heart palpitations. No tachyarrhythmias since he was in the hospital. 3. Severe pulmonary hypertension. 4. Hypertension. 5. Tricuspid regurgitation. 6. History of pulmonary emboli and left leg deep venous thrombosis. 7. Elevated D-dimers, but negative for pulmonary emboli. 8. Chronic heart failure with preserved ejection fraction. RECOMMENDATIONS: 1. I will decrease his Cardizem dose to 120 mg and monitor heart rate and blood pressures. 2. Blood gas is being ordered since the patient is slightly lethargic. 3. His echo from 03/2018. 4. I would recommend outpatient Holter monitor or a cardiac event monitor for further evaluation of his heart palpitations. 5. There is no significant bradycardia is noted since he was in the hospital. 6. No family at bedside at the time of examination. KVNG ELENA MD CM:CONSTR:REPORT OF CONSULTATION 21 09/21/18 0624 interface
--- NOTE | ~2018-09-19 | CON ---
[place], [place] REPORT OF CONSULTATION NAME: SARAH TRIANA UNIT #: [id number] ROOM: 507 DOCTOR: MARCIAL TERRY MD BIRTHDATE: [birth year] DOS: 09/21/2018 PULMONARY CONSULTATION EVALUATION AND MANAGEMENT CONSULTATION REQUESTED BY: Hospitalist service. REASON FOR CONSULTATION: Assessment of the hypoxic respiratory failure. History could not be obtained because the patient has been noted with history of significant psychiatric illness and currently not noted responding to vocal commands. The patient appeared to be drowsy. HISTORY OF PRESENT ILLNESS: This is a 58-year-old white male patient presented to the Emergency Room from the nursing facility. [facility] reported with symptoms of dizziness, shortness of breath and also has reported syncopal episodes. The patient has been noted with chronic change in mental status with decreased response per nursing staff. He had been admitted to the hospital for further care and assessment. He was unable to give me any history this morning. The patient was assessed. He was not noted to be arousable, does not have any verbal communication. REVIEW OF SYSTEMS: Cannot be completed because of inability to interact with the patient verbally. PAST MEDICAL HISTORY: 1. Reported bipolar disorder. 2. BPH. 3. Congestive heart failure, diastolic dysfunction. 4. Paranoid schizophrenia. 5. Chronic obstructive pulmonary disease. 6. Chronic obesity. 7. Essential hypertension. 8. Coronary artery disease. 9. Left lower extremity deep venous thrombosis with pulmonary embolism history. 10. History of supraventricular tachycardia. PAST SURGICAL HISTORY: Reported parotidectomy. SOCIAL HISTORY: The patient has not been reported with any history of active alcohol use, but used to drink alcohol, which was discontinued years ago. History of tobacco use noted. Again, details were missing. FAMILY HISTORY: The patient reported as father of cancer, unknown age. Mother of the patient is living, 73 years old. HOME MEDICATIONS: Noted several at the nursing facility as use of acyclovir, Tylenol, ProAir HFA, Eliquis, BuSpar, Plavix, digoxin, Cardizem, Breo Ellipta, gemfibrozil, Haldol, lithium carbonate, melatonin, metformin, metoprolol tartrate, omeprazole, Seroquel, Spiriva Respimat Flomax and Aldactone. CURRENT MEDICATIONS: Which has been admitted for the patient actively on this [place], [place] REPORT OF CONSULTATION NAME: SARAH TRIANA UNIT #: [id number] ROOM: 507 DOCTOR: MARCIAL TERRY MD BIRTHDATE: [birth year] hospitalization were noted as Cardizem, vitamin D, digoxin, Eliquis, fish oil, lithium, Flomax, Aldactone, Plavix, gemfibrozil, omeprazole, metoprolol tartrate, Haldol, DuoNeb, BuSpar, acyclovir for this patient and some other meds. DRUG ALLERGY HISTORY: The patient noted as allergy: 1. TESTOSTERONE. 2. ASPIRIN. 3. VALPROIC ACID. PHYSICAL EXAMINATION: GENERAL: This is a 58-year-old white male patient, currently noted drowsy this morning, but no distress, using oxygen per nasal cannula. Height of the patient recorded on admission 6 feet, weight of 248 pounds, BMI 33.7. VITAL SIGNS: Normal temperature, respiratory rate is 18-20, heart rate 70-64, blood pressure 140/66-100/75. The pulse ox saturation recorded on 4 liters nasal cannula 92% saturation. HEENT: Head is atraumatic. Eyes, nonicterus. NECK: Supple. It was obese. CARDIOVASCULAR SYSTEM: S1, S2 audible. LUNGS: Decreased breath sounds noted in the lungs without any wheezing or crackles heard. ABDOMEN: Soft, nontender. Bowel sounds present. EXTREMITIES: Noted without any visible edema. MUSCULOSKELETAL: Noted without any acute deformities. CENTRAL NERVOUS SYSTEM: At this time cannot be assessed. LABORATORY DATA: CBC that was done yesterday, WBC count normal, hemoglobin 11, platelet count was normal. CMP that was done as glucose 130. BUN and creatinine was normal. Potassium 5.5 on admission. The PT/PTT yesterday was noted as INR 1.4, PTT normal secondary to Eliquis. The CBC that was done this morning as hemoglobin 11. Remaining CBC normal. BMP this morning, normal BUN and creatinine. The arterial blood gas that was done yesterday on 4 liters, pH of 7.36, pCO2 of 35, pO2 of 62. The lithium level noted as 0.67 yesterday. The troponin which was done on admission was normal. The CBC done on 09/19/2018, WBC count 4.7, hemoglobin 11.3, platelet count normal. PT/INR that was noted at 1.6. CMP of the patient on 09/19/2018 with normal BUN and creatinine. Potassium 5.6. The D-dimer noted mildly elevated at 4.04. Chest x-ray does not report any acute abnormality. The right diaphragm was noted partially elevated. CT scan of the chest has a CTA protocol. There was no pulmonary embolism. There was no evidence of any pulmonary infiltration, consolidation. Mild enlarged pulmonary arterial trunk was also noted. IMPRESSION: 1. The patient will be currently admitted to the hospital noted possible chronic change in mental status. Another arterial blood gas repeated to assess rule out hypercapnia. There was no evidence of acute exacerbation of chronic obstructive pulmonary disease. 2. Hypoxia may be considered chronic possibility for this related possible pulmonary hypertension. [place], [place] REPORT OF CONSULTATION NAME: SARAH TRIANA UNIT #: [id number] ROOM: 507 DOCTOR: MARCIAL TERRY MD BIRTHDATE: [birth year] 3. Thromboembolic patient currently treated with Eliquis for this patient and that should suffice. 4. The patient with obesity as well. 5. History of psychiatric problem with medication causing current change in mental status will be also considered in the differential diagnosis. PLAN OF MANAGEMENT: Arterial blood gas will be ordered for the patient at this time to assess for hypercapnia. Use of the BiPAP might be beneficial if that is noted. Otherwise, titrate oxygen supplementation to maintain pulse ox 92% or greater. Other additional treatment changes recommended based on progression of the illness. Usual care and therapy, plan of management will be ordered in continued. Supportive care, plan of management and treatments. Thanks for allowing me to participate in the care of this patient. MARCIAL FULTON MD CM:CONSTR:REPORT OF CONSULTATION 1142 09/22/18 0143 interface
--- NOTE | ~2018-09-19 | EKG ---
[place], [place] ELECTROCARDIOGRAM REPORT NAME: SARAH TRIANA UNIT #: [id number] ROOM: 507 DOCTOR: ISIDRO DRAFT REPORT BIRTHDATE: [birth year] [facility] Test Date: 2018-09-19 Test Time: 19:13:49 Pat Name: SARAH TRIANA Department: Room: 507 Gender: M Glaucoma Specialist: Jennifer Hill : 1960 Requested By: VANESSA ROBLES Order Number: [id number] Reading MD: Shine Yarbrough Measurements Intervals [place] Rate: 66 P: 21 [place]: 227 QRS: 119 QRSD: 92 T: -44 QT: 417 QTc: 437 Interpretive Statements Sinus rhythm Prolonged [place] interval Probable right ventricular hypertrophy Borderline T abnormalities, inferior leads Minimal ST elevation, lateral leads Baseline wander in lead(s) V3,V4,V6 Compared to ECG 09/19/2018 16:41:01 T-wave abnormality now present ST (T wave) deviation now present Electronically Signed On 09-21-2018 9:47:16 PDT by Shine Yarbrough CM:EKGRPT:ELECTROCARDIOGRAM REPORT [id number] VANESSA ROBLES EPIPHANY DRAFT REPORT VANESSA ROBLES
--- NOTE | ~2018-09-19 | PR ---
[place], [place] PROGRESS NOTE NAME: SARAH TRIANA UNIT #: [id number] ROOM: 507 DOCTOR: KVNG ELENA MD BIRTHDATE: [birth year] DOS: 09/21/2018 CARDIOLOGY FOLLOWUP NOTE REASON FOR VISIT: Palpitation, near syncope. SUBJECTIVE: The patient is feeling better. Denies any chest pain, shortness of breath. No palpitation or dizziness. No nausea, vomiting, diarrhea. No PND, no orthopnea, no fever and chills. REVIEW OF SYSTEMS: Review of 8 systems negative except as mentioned above. PHYSICAL EXAMINATION: VITAL SIGNS: Blood pressure 114/66, pulse 69, respirations 20. RHYTHM STRIPS: The patient in sinus rhythm. GENERAL: Alert, comfortable, in no acute distress. HEAD AND NECK: Neck was supple. The patient had positive distended neck veins, no carotid bruit. Tongue was moist and pharynx clear. CHEST: Symmetrical, nontender. LUNGS: Clear to auscultation bilaterally. HEART: Regular rhythm, no S3, grade 2/6 systolic murmur. ABDOMEN: Benign, nontender. Bowel sounds normal. EXTREMITIES: Showed trace edema. Distal pulses palpable. SKIN: Warm and dry. No cyanosis, no clubbing. RECTAL: Deferred. GENITOURINARY: Deferred. MEDICATIONS AND LABORATORIES: Reviewed. IMPRESSION: 1. Near syncope, no recurrence, possible hypotension. The patient had no significant komal or tachyarrhythmias in the hospital. 2. Severe pulmonary hypertension. 3. Intermittent palpitations. 4. Hypertension. 5. History of pulmonary emboli. 6. Chronic heart failure with preserved ejection fraction. RECOMMENDATIONS: 1. Continue current medication as blood pressure and heart rates are stable. 2. If the patient develops any recurrent heart racing, then he will need 2-4 weeks of cardiac event monitor. 3. The patient to follow with his traveling missionary in [place]. 4. No family at bedside at the time of examination. 5. He can be discharged home from the cardiac standpoint. [place], [place] PROGRESS NOTE NAME: SARAH TRIANA UNIT #: [id number] ROOM: 507 DOCTOR: KVNG ELENA MD BIRTHDATE: [birth year] KVNG ELENA MD CM:CHRISSY 28 3 KVNG ELENA MD 09/22/18212 interface
--- NOTE | ~2018-09-19 | EKG ---
[place], [place] ELECTROCARDIOGRAM REPORT NAME: SARAH TRIANA UNIT #: [id number] ROOM: 507 DOCTOR: ISIDRO DRAFT REPORT BIRTHDATE: [birth year] [facility] Test Date: 2018-09-19 Test Time: 13:15:08 Pat Name: SARAH TRIANA Department: Room: 507 Gender: M Roll Form Operator: Chanelle Merino : 1960 Requested By: VANESSA ROBLES Order Number: [id number] Reading MD: Elijah Santos MD Measurements Intervals [place] Rate: 62 P: 31 AL: 260 QRS: 113 QRSD: 124 T: -45 QT: 475 QTc: 483 Interpretive Statements Sinus rhythm Prolonged AL interval Probable left atrial enlargement RBBB and LPFB Compared to ECG 07/21/2018 08:44:17 Left posterior fascicular block now present Right bundle-branch block now present Ventricular premature complex(es) no longer present Electronically Signed On 09-19-2018 15:52:19 PDT by Elijah Santos MD CM:EKGRPT:ELECTROCARDIOGRAM REPORT [id number] VANESSA ROBLES EPIPHANY DRAFT REPORT VANESSA ROBLES
--- NOTE | ~2018-09-19 | PR ---
[place], [place] PROGRESS NOTE NAME: SARAH TRIANA UNIT #: [id number] ROOM: 507 DOCTOR: MARCIAL TERRY MD BIRTHDATE: [birth year] DOS: 09/22/2018 PULMONARY PROGRESS NOTE SUBJECTIVE: The patient noted comfortable at this time, resting comfortably in the bed this morning of assessment was noted without any acute distress, noted to be awake and also had some conversation as well. He has not been noted sleepy this morning and most likely has a baseline mental status. Oxygen supplementation was continued. Did not report any symptoms of shortness of breath, coughing, or chest pain. OBJECTIVE: VITAL SIGNS: Normal temperature, respiratory rate 18, heart rate 80, blood pressure 118/76. Pulse oxygen saturation on 4 liters nasal cannula 92% saturation. HEENT: Examination shows head was atraumatic. EYES: No icterus. NECK: Supple. CARDIOVASCULAR: S1, S2 audible. LUNGS: Noted with decreased breath sounds in the lungs bilaterally without any wheezing or crackles. ABDOMEN: Soft with moderate obesity, bowel sounds present. EXTREMITIES: No acute edema. LABORATORY DATA: Arterial blood gas this morning, pH of 7.37, pCO2 of 38.1, pO2 61.5. IMPRESSION: 1. The patient with hypoxic respiratory failure chronic appeared to have end-stage disease chronic obstructive pulmonary disease as well. 2. Suspected diagnosis of obstructive sleep apnea disorder should be considered. PLAN OF MANAGEMENT: Discharge planning was discussed with Sara Butt. [facility] workup as needed including assessment for possibility of obstructive sleep apnea disorder. [place], [place] PROGRESS NOTE NAME: SARAH TRIANA UNIT #: [id number] ROOM: 507 DOCTOR: MARCIAL TERRY MD BIRTHDATE: [birth year] MARCIAL FULTON MD CM:PNTRANS [id number] MARCIAL PERALTA MD 09/29/18 1043 interface
--- NOTE | ~2018-09-19 | EKG ---
[place], [place] ELECTROCARDIOGRAM REPORT NAME: SARAH TRIANA UNIT #: [id number] ROOM: 507 DOCTOR: ISIDRO DRAFT REPORT BIRTHDATE: [birth year] [facility] Test Date: 2018-09-19 Test Time: 16:41:01 Pat Name: SARAH TRIANA Department: Room: 507 Gender: M Breast Puller: Chanelle Merino : 1960 Requested By: VANESSA ROBLES Order Number: [id number] Reading MD: Elijah Santos MD Measurements Intervals [place] Rate: 61 P: 20 OR: 258 QRS: 109 QRSD: 88 T: -68 QT: 414 QTc: 417 Interpretive Statements Sinus rhythm Prolonged OR interval Low voltage, precordial leads Probable RVH w/ secondary repol abnormality Baseline wander in lead(s) V6 Compared to ECG 07/21/2018 08:44:17 Low QRS voltage now present Ventricular premature complex(es) no longer present Electronically Signed On 09-19-2018 15:52:44 PDT by Elijah Santos MD CM:EKGRPT:ELECTROCARDIOGRAM REPORT [id number] VANESSA ROBLES EPIPHANY DRAFT REPORT VANESSA ROBLES
[2018-09-19 11:34] VITALS: BP 120/75
[2018-09-19 11:57] LABS: BASO % 0.6 % (0.0-1.0); EOS # 0.1 10*3/uL (0.0-0.4); EOS % 1.7 % (1.0-4.0); HEMATOCRIT 36.9 % (42.0-52.0); HEMOGLOBIN 11.3 g/dl (14.0-18.0); LYMPH # 0.7 10*3/uL (1.3-4.4); LYMPH % 15.2 % (27.0-41.0); MEAN CELL VOLUME 90.9 fl (80.0-94.0); MEAN CORPUSCULAR HGB 27.8 pg (27.0-31.0); MEAN CORPUSCULAR HGB CONC 30.6 g/dl (33.0-37.0); MEAN PLATELET VOLUME 10.9 fl (9.6-12.3); MONO # 0.6 10*3/uL (0.1-1.0); MONO % 12.2 % (3.0-9.0); NEUT # 3.3 10*3/uL (2.3-7.9); NEUT % 69.9 % (47.0-73.0); PLATELET COUNT AUTOMATED 134 10*3/uL (130-400); RED BLOOD COUNT 4.06 10*6/uL (4.50-5.90); RED CELL DISTRI WIDTH 16.1 % (0-14.5); WHITE BLOOD COUNT 4.7 10*3/uL (4.8-10.8)
[2018-09-19 12:12] LABS: ACT PARTIAL THROMBO TIME 29.1 SECONDS (20.0-32.1); INTERNATIONAL NORM RATIO 1.6 (2.0-3.5)
[2018-09-19 12:13] LABS: ALKALINE PHOSPHATASE 117 U/L (45-117); BUN 20 mg/dl (7-24); CHLORIDE 108 mmol/L (98-107); CREATININE 1.19 mg/dL (0.70-1.30); POTASSIUM 5.6 mmol/L (3.5-5.1); SGOT/AST 12 IU/L (3-35); SGPT/ALT 17 U/L (12-78); SODIUM 137 mmol/L (136-145); TOTAL PROTEIN 7.1 gm/dL (6.4-8.2)
[2018-09-19 12:15] LABS: TROPONIN I 0.034 ng/ml (<0.045)
[2018-09-19 12:57] VITALS: BP 101/64
--- NOTE | 2018-09-19 13:09 | NUR ---
[facility] RN WAS TOLD PT DID FALL AT THERE FACILITY. PT HAS HISTORY OF DIZZINESS AND THAT IS WHY HE IS IN A PENITENTIARY. PT WAS NOT PUT ON ANY NEW MEDICATIONS TO CAUSE DIZZINESS. VANESSA MACKP AWARE.
[2018-09-19 14:04] VITALS: BP 110/62
--- NOTE | 2018-09-19 14:26 | NUR ---
UNABLE TO TAKE PT TO FLOOR AT THIS TIME, PT IS REQUESTING TO EAT HIS LUNCH TRAY FIRST.
[2018-09-19 14:30] VITALS: BP 118/58
--- NOTE | 2018-09-19 14:31 | NUR ---
FIRST ACS EKG WAS NOT OFFIICIALLY ANNOUNCED, SO WAS NOT DONE UNTIL 1HR AND 35MIN AFTER ORDER WAS PUT IN
--- NOTE | 2018-09-19 14:57 | NUR ---
REPORT RECEIVED FROM CLAY PIGEON LOADERDIANE MCGOVERN AT BEDSIDE. PATIENT AWAKE, ALERT & ORIENTED x3. SEE ASSESSMENT.
--- NOTE | 2018-09-19 14:57 | NUR ---
A 58, admitted to , under the services of MUSHTAQ Roberson DO with a diagnosis of NEAR SYNCOPE. Chief complaint is FALL. Patient arrived via stretcher from ER. Monitor applied. Initial assessment completed. Vital signs taken and recorded. MUSHTAQ ROBERSON DO notified of admission to the unit. Orders received. See assessment for past medical history, medications and allergies. Patient and/or family oriented to unit. [facility] visitation policy reviewed. Clothing/patient valuable form completed. MAC XIONG
[2018-09-19 15:00] VITALS: BP 99/69
[2018-09-19] MEDS ORDERED: TYLENOL325 M1 PO (16:52)
[2018-09-19] MEDS ORDERED: ELIQUIS5 M1 PO (17:51)
[2018-09-19] MEDS ORDERED: BREO ELLIPTA 11 EACH NEB (17:52)
[2018-09-19] MEDS ORDERED: BUSPIRONE HCL10 MG PO (17:53)
[2018-09-19] MEDS ORDERED: FISH OIL 1,0001 EAC4 PO (17:55)
[2018-09-19] MEDS ORDERED: GLUCOPHAGE850 M1 PO (17:58)
[2018-09-19] MEDS ORDERED: Lopressor25 MG PO (18:00)
[2018-09-19] MEDS ORDERED: MIRALAX17 GM PO (18:01)
[2018-09-19] MEDS ORDERED: PLAVIX75 M1 PO (18:02)
[2018-09-19] MEDS ORDERED: ALDACTONE25 MG PO (18:03)
[2018-09-19] MEDS ORDERED: FLOMAX0.4 MG PO (18:04)
[2018-09-19] MEDS ORDERED: PROAIR HFA8.5 GM INH (18:05)
[2018-09-19] MEDS ORDERED: SPIRIVA RESPIMAT4 GM INH (18:05)
--- NOTE | 2018-09-19 18:35 | NUR ---
NEW CONSULT CALLED TO DR KIMBERLEE GUERIN-BELLA WAFER FABRICATION TECHNICIAN.
--- NOTE | 2018-09-19 18:38 | NUR ---
PATIENT HOME MEDICATIONS UPDATED PER CARI IN [facility]. DR MOLINA CALLED AND MADE AWARE. D DIMER ELEVATED AT 4.04.
--- NOTE | 2018-09-19 19:30 | NUR ---
UNABLE TO OBTAIN AC IV AT THIS TIME.
[2018-09-19 20:00] VITALS: BP 118/80
--- NOTE | 2018-09-19 21:30 | NUR ---
IV started left antecubital with #22 protective cath after 3 attempts. Site prepped with Chloroprep. Sterile dressing applied. Patient tolerated procedure well. MAC XIONG
[2018-09-20] VITALS: BP 124/80
[2018-09-20 07:46] LABS: BASO % 0.8 % (0.0-1.0); EOS # 0.1 10*3/uL (0.0-0.4); EOS % 2.4 % (1.0-4.0); HEMATOCRIT 36.2 % (42.0-52.0); LYMPH # 0.8 10*3/uL (1.3-4.4); LYMPH % 15.1 % (27.0-41.0); MEAN CELL VOLUME 89.6 fl (80.0-94.0); MEAN CORPUSCULAR HGB 27.2 pg (27.0-31.0); MEAN CORPUSCULAR HGB CONC 30.4 g/dl (33.0-37.0); MEAN PLATELET VOLUME 10.8 fl (9.6-12.3); MONO # 0.7 10*3/uL (0.1-1.0); MONO % 13.1 % (3.0-9.0); NEUT # 3.4 10*3/uL (2.3-7.9); NEUT % 68.2 % (47.0-73.0); PLATELET COUNT AUTOMATED 132 10*3/uL (130-400); RED BLOOD COUNT 4.04 10*6/uL (4.50-5.90); RED CELL DISTRI WIDTH 16.2 % (0-14.5)
[2018-09-20 08:00] VITALS: BP 112/68; BP 134/64
[2018-09-20 08:15] LABS: ALBUMIN 3.8 gm/dl (3.1-4.5); ALKALINE PHOSPHATASE 112 U/L (45-117); BUN 19 mg/dl (7-24); CHLORIDE 108 mmol/L (98-107); CHOLESTEROL 110 mg/dL (<200); CREATININE 1.02 mg/dL (0.70-1.30); HDL CHOLESTEROL 27 mg/dl (40-60); LDL CHOLESTEROL 67 mg/dL (9-159); PHOSPHOROUS 3.9 mg/dL (2.5-4.9); POTASSIUM 5.5 mmol/L (3.5-5.1); SGOT/AST 10 IU/L (3-35); SGPT/ALT 15 U/L (12-78); SODIUM 138 mmol/L (136-145); TOTAL PROTEIN 6.9 gm/dL (6.4-8.2); TRIGLYCERIDES 79 mg/dl (<150); VLDL CHOLESTEROL 16 mg/dL (6-40)
[2018-09-20 08:29] LABS: ACT PARTIAL THROMBO TIME 27.6 SECONDS (20.0-32.1); INTERNATIONAL NORM RATIO 1.4 (2.0-3.5)
[2018-09-20 12:00] VITALS: BP 109/72
[2018-09-20 14:42] LABS: ABG BASE EXCESS -4.7 mmol/L (-2.0-2.0); ABG HCO3 19.7 mmol/l (22-26); ABG O2 SATURATION 92.7 % (95-97); ARTERIAL BLOOD GAS PCO2 35.2 mmHg (35-45); ARTERIAL BLOOD GAS PH 7.364 (7.35-7.45); ARTERIAL BLOOD GAS PO2 62.9 mmHg (80-90)
[2018-09-20 16:00] VITALS: BP 105/76
--- NOTE | 2018-09-20 16:29 | NUR ---
NEW CONSULT CALLED TO DR FULTON. WILL SEE PATIENT TOMORROW.
--- NOTE | 2018-09-20 16:42 | NUR ---
CALLED [facility] AND SPOKE WITH NURSE ON THE [facility] ABOUT PATIENT'S NORMAL MENTAL STATUS AND LETHARGY. NURSE STATES THAT THIS IS PATIENT'S NORMAL BEHVAIOR. PATIENT HAS PERIODS OF LETHARGY DURING THE DAY AND SLEEPS "HARD". [facility] CALLED.
--- NOTE | 2018-09-20 19:00 | NUR ---
ARRIVED ON SHIFT, INTRODUCED TO PATIENT, BEDSIDE REPORT RECIEVED, WHITE BOARD UPDATED. NO NEEDS VOICED AT THIS TIME. CALL LIGHT WITHIN REACH, BNED IN LOW POSITION, SR UP X 2.
[2018-09-20 20:00] VITALS: BP 112/77
--- NOTE | 2018-09-20 20:12 | NUR ---
24 HR chart check completed.
[2018-09-21] VITALS: BP 100/75
--- NOTE | 2018-09-21 00:39 | NUR ---
PATIENT C/O OF INABILITY TO SLEEP, MEDICATED WITH TEMAZEPAM 15MG ORDERED.
[2018-09-21 07:27] LABS: BASO % 0.8 % (0.0-1.0); EOS # 0.1 10*3/uL (0.0-0.4); EOS % 2.3 % (1.0-4.0); HEMATOCRIT 35.5 % (42.0-52.0); LYMPH # 0.9 10*3/uL (1.3-4.4); LYMPH % 16.4 % (27.0-41.0); MEAN CELL VOLUME 89.6 fl (80.0-94.0); MEAN CORPUSCULAR HGB 27.8 pg (27.0-31.0); MEAN PLATELET VOLUME 11.1 fl (9.6-12.3); MONO # 0.6 10*3/uL (0.1-1.0); MONO % 11.3 % (3.0-9.0); NEUT # 3.7 10*3/uL (2.3-7.9); NEUT % 68.8 % (47.0-73.0); PLATELET COUNT AUTOMATED 134 10*3/uL (130-400); RED BLOOD COUNT 3.96 10*6/uL (4.50-5.90); RED CELL DISTRI WIDTH 16.2 % (0-14.5); WHITE BLOOD COUNT 5.3 10*3/uL (4.8-10.8)
[2018-09-21 07:54] LABS: BUN 20 mg/dl (7-24); CHLORIDE 108 mmol/L (98-107); CREATININE 0.94 mg/dL (0.70-1.30); POTASSIUM 4.7 mmol/L (3.5-5.1); SODIUM 137 mmol/L (136-145)
[2018-09-21 08:00] VITALS: BP 114/66
[2018-09-21 09:36] LABS: ABG HCO3 20.4 mmol/l (22-26); ABG O2 SATURATION 91.1 % (95-97); ARTERIAL BLOOD GAS PCO2 36.2 mmHg (35-45); ARTERIAL BLOOD GAS PH 7.367 (7.35-7.45); ARTERIAL BLOOD GAS PO2 62.5 mmHg (80-90)
[2018-09-21 12:00] VITALS: BP 104/75
[2018-09-21 16:00] VITALS: BP 132/83
--- NOTE | 2018-09-21 19:52 | NUR ---
PT ASLEEP IN BED, EASILY AROUSABLE BUT REMAINS DROWSY. DENIES ANY NEEDS AT THIS TIME. NO S/S OF DISTRESS NOTED. WILL MONITOR. CALL LIGHT IN REACH, BED ALARM INTACT.
[2018-09-21 20:00] VITALS: BP 107/80
[2018-09-22] VITALS: BP 105/75
--- NOTE | 2018-09-22 01:42 | NUR ---
PT ASLEEP IN BED. RESPIRATIONS EASY, NO S/S OF DISTRESS NOTED. WILL MONITOR. CALL LIGHT IN REACH.
--- NOTE | 2018-09-22 03:24 | NUR ---
RESPIRATORY AT BEDSIDE TO ADMINISTER BREATHING TX. PATIENT IS VERY SOB AFTER WALKING TO BATHROOM. O2 IN USE, NOW AT 5LPM. I/E WHEEZES NOTED T/O. POX 93%. WILL MONITOR. CALL LIGHT LEFT IN REACH.
--- NOTE | 2018-09-22 06:53 | NUR ---
PT HAS BEEN DROWSY THROUGHOUT THE NIGHT, BUT APPEARS TO BE MORE LETHARGIC THIS MORNING. PT AROUSES EASILY, BUT SPEECH SLURRED. POX 93% ON 4L NC. NOTIFIED. INSTRUCTED TO GET ABGs. RESPIRATORY CALLED AT THIS TIME. WILL BE UP TO DRAW ABGs.
[2018-09-22 07:20] LABS: ABG BASE EXCESS -2.6 mmol/L (-2.0-2.0); ABG HCO3 21.8 mmol/l (22-26); ABG O2 SATURATION 90.1 % (95-97); ARTERIAL BLOOD GAS PCO2 38.1 mmHg (35-45); ARTERIAL BLOOD GAS PH 7.375 (7.35-7.45); ARTERIAL BLOOD GAS PO2 61.5 mmHg (80-90)
[2018-09-22 08:00] VITALS: BP 118/76
[2018-09-22] MEDS ORDERED: DILTIAZEM 24HR120 MG PO (10:31)
--- NOTE | 2018-09-22 13:06 | NUR ---
Patient comes from [place] [id number]. 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 Faxed clinical updates for review.
--- NOTE | 2018-09-22 13:14 | NUR ---
Patient discharged to [facility], transportation scheduled for 2:30 pm with [facility] NH, nursing/flight steward notified. Attempted to call listed number for patient contact, but phone rang busy. Unable to contact
--- NOTE | 2018-09-22 14:21 | NUR ---
PT STATES HE IS FROM [facility] AND WILL RETURN THERE ON DISCHARGE. WILL CONTINUE TO FOLLOW.
--- NOTE | 2018-09-22 14:44 | NUR ---
Discharge instructions reviewed with patient/family. Patient receptive and verbalizes understanding. Follow-up care arranged. Written instructions given to patient/family. DISCHARGED VIA [facility]. [facility] X[facility]G
--- NOTE | 2018-09-22 14:50 | NUR ---
REPORT CALLED TO CARI/YUDY LARSEN.
== END 2018-09-22 14:50 | disposition other institution (70) | DRG 189 ==
LOC: ED 11:27 → 5E 13:41 → EDHOLD 13:41 → 5E 14:23
PROVIDERS: Hospitalist; Internal Medicine Critical Care Medicine; Nurse Practitioner Family; Registered Nurse; Student in an Organized Health Care Education/Training Program; ADMIT Internal Medicine
DX: J96.21 Acute and chronic respiratory failure with hypoxia (principal); D68.9 Coagulation defect, unspecified; I50.32 Chronic diastolic (congestive) heart failure; F20.0 Paranoid schizophrenia; D68.59 Other primary thrombophilia; R55 Syncope and collapse; R53.1 Weakness; R42 Dizziness and giddiness; E87.5 Hyperkalemia; E87.8 Other disorders of electrolyte and fluid balance, not elsewhere classified; E66.01 Morbid (severe) obesity due to excess calories; D64.9 Anemia, unspecified; I27.20 Pulmonary hypertension, unspecified; R00.2 Palpitations; E78.2 Mixed hyperlipidemia; J44.9 Chronic obstructive pulmonary disease, unspecified; K59.09 Other constipation; N40.0 Benign prostatic hyperplasia without lower urinary tract symptoms; K21.9 Gastro-esophageal reflux disease without esophagitis; F31.9 Bipolar disorder, unspecified; I11.0 Hypertensive heart disease with heart failure; R73.9 Hyperglycemia, unspecified; I25.10 Atherosclerotic heart disease of native coronary artery without angina pectoris; I07.1 Rheumatic tricuspid insufficiency; I50.812 Chronic right heart failure; E89.0 Postprocedural hypothyroidism; T50.995A Adverse effect of other drugs, medicaments and biological substances, initial encounter; Y92.89 Other specified places as the place of occurrence of the external cause; Z88.6 Allergy status to analgesic agent; Z88.8 Allergy status to other drugs, medicaments and biological substances; Z87.891 Personal history of nicotine dependence; Z80.8 Family history of malignant neoplasm of other organs or systems; Z86.718 Personal history of other venous thrombosis and embolism; Z86.711 Personal history of pulmonary embolism; Z79.899 Other long term (current) drug therapy; Z79.02 Long term (current) use of antithrombotics/antiplatelets; Z68.33 Body mass index [BMI] 33.0-33.9, adult

== ENCOUNTER 2018-09-24 14:45 | Emergency (ER) | payer OTHER ==
[~2018-09-24] VITALS: Ht 182.8 cm; Wt 113.6 kg
--- NOTE | ~2018-09-24 | EKG ---
[place], [place] ELECTROCARDIOGRAM REPORT NAME: SARAH TRIANA UNIT #: [id number] ROOM: DOCTOR: ISIDRO DRAFT REPORT BIRTHDATE: [address] 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: : 1960 Requested By: DESIRAE TALBERT Order Number: [id number] Reading MD: Shine Yarbrough Measurements Intervals [place] Rate: 62 P: 48 [place]: 244 QRS: 121 QRSD: 88 T: -16 QT: 398 QTc: 405 Interpretive Statements Sinus rhythm First degree AV block Probable RVH w/ secondary repol abnormality Nonspecific T abnormalities, lateral leads Baseline wander in lead(s) I,II,III,aVR,aVF Compared to ECG 09/19/2018 19:13:49 ST (T wave) deviation no longer present T-wave abnormality still present Electronically Signed On 09-25-2018 8:38:44 PDT by Shine Yarbrough CM:EKGRPT:ELECTROCARDIOGRAM REPORT [id number] DESIARE FELIX DRAFT REPORT DESIRAE ROBERTS
[~2018-09-24 14:45] MED LIST changes: +ALDACTONE25 MG PO; +BREO ELLIPTA 11 EACH NEB; +BUSPIRONE HCL10 MG PO; +DILTIAZEM 24HR120 MG PO; +ELIQUIS5 M1 PO; +FISH OIL 1,0001 EAC4 PO; +FLOMAX0.4 MG PO; +GLUCOPHAGE850 M1 PO; +MIRALAX17 GM PO; +PLAVIX75 M1 PO; +PROAIR HFA8.5 GM INH; +SPIRIVA RESPIMAT4 GM INH; +TYLENOL325 M1 PO
[2018-09-24 15:31] LABS: BASO % 0.5 % (0.0-1.0); EOS # 0.1 10*3/uL (0.0-0.4); EOS % 2.1 % (1.0-4.0); HEMATOCRIT 38.7 % (42.0-52.0); HEMOGLOBIN 11.8 g/dl (14.0-18.0); LYMPH # 0.9 10*3/uL (1.3-4.4); LYMPH % 13.9 % (27.0-41.0); MEAN CELL VOLUME 89.6 fl (80.0-94.0); MEAN CORPUSCULAR HGB 27.3 pg (27.0-31.0); MEAN CORPUSCULAR HGB CONC 30.5 g/dl (33.0-37.0); MEAN PLATELET VOLUME 11.4 fl (9.6-12.3); MONO # 0.6 10*3/uL (0.1-1.0); MONO % 9.1 % (3.0-9.0); NEUT # 4.7 10*3/uL (2.3-7.9); NEUT % 74.1 % (47.0-73.0); PLATELET COUNT AUTOMATED 158 10*3/uL (130-400); RED BLOOD COUNT 4.32 10*6/uL (4.50-5.90); RED CELL DISTRI WIDTH 16.2 % (0-14.5); WHITE BLOOD COUNT 6.3 10*3/uL (4.8-10.8)
[2018-09-24 15:42] LABS: ACT PARTIAL THROMBO TIME 28.9 SECONDS (20.0-32.1); INTERNATIONAL NORM RATIO 1.6 (2.0-3.5)
[2018-09-24 15:44] LABS: BILIRUBIN NEGATIVE (NEGATIVE); BLOOD NEGATIVE (NEGATIVE); CLARITY CLEAR (CLEAR); COLOR YELLOW (YELLOW); GLUCOSE NEGATIVE (NEGATIVE); KETONE NEGATIVE (NEGATIVE); LEUKO ESTERASE NEGATIVE (NEGATIVE); NITRITE NEGATIVE (NEGATIVE); SPECIFIC GRAVITY <= 1.005 (1.005-1.030); UROBILINOGEN >= 8.0 E.U./dl (0.2-1.0)
[2018-09-24 15:48] VITALS: BP 108/74
[2018-09-24 15:48] LABS: ALBUMIN 3.9 gm/dl (3.1-4.5); ALKALINE PHOSPHATASE 107 U/L (45-117); BUN 18 mg/dl (7-24); CHLORIDE 105 mmol/L (98-107); CREATININE 1.16 mg/dL (0.70-1.30); LIPASE 107 U/L (73-393); POTASSIUM 4.9 mmol/L (3.5-5.1); SGOT/AST 15 IU/L (3-35); SGPT/ALT 16 U/L (12-78); SODIUM 136 mmol/L (136-145); TOTAL PROTEIN 7.1 gm/dL (6.4-8.2); TROPONIN I 0.026 ng/ml (<0.045)
[2018-09-24 15:52] LABS: BACTERIA TRACE; EPITHELIAL CELLS 0-2; WBC 0-2 wbc/hpf (0-5)
== END 2018-09-24 21:06 | disposition home or self-care (01) ==
LOC: ED 14:45
PROVIDERS: Physician Assistant
DX: Z02.89 Encounter for other administrative examinations (principal); R53.1 Weakness; R42 Dizziness and giddiness; I48.91 Unspecified atrial fibrillation; I11.0 Hypertensive heart disease with heart failure; I50.9 Heart failure, unspecified; F31.9 Bipolar disorder, unspecified; G89.29 Other chronic pain; F20.9 Schizophrenia, unspecified; F17.200 Nicotine dependence, unspecified, uncomplicated; Z88.6 Allergy status to analgesic agent; Z88.8 Allergy status to other drugs, medicaments and biological substances; Z79.899 Other long term (current) drug therapy; Z86.718 Personal history of other venous thrombosis and embolism; Z86.711 Personal history of pulmonary embolism